=== PATIENT | female | born 1950 | race Caucasian/White ===

== ENCOUNTER 2019-04-14 11:48 | Inpatient (IN) | payer OTHER, BC ==
[2019-04-14 13:13] LABS: BASO % 0.5 % (0-2.0); EOS % 0.3 % (0-4.5); HEMATOCRIT 44.6 % (32.4-45.2); HEMOGLOBIN 14.7 GM/dL (10.7-15.3); LYMPH % 8.7 % (8-40); MCH 29.5 pg (25.7-33.7); MCHC 33.1 g/dl (32.0-36.0); MEAN CELL VOLUME 89.2 fl (80-96); MEAN PLT VOLUME 7.8 fl (7.5-11.1); MONO % 3.8 % (3.8-10.2); NEUT % 86.7 % (42.8-82.8); PLATELET COUNT 207 K/MM3 (134-434); RDW 15.5 % (11.6-15.6); WHITE BLOOD COUNT 7.2 K/mm3 (4.0-10.0)
[2019-04-14 13:29] LABS: INR 1.15 (0.83-1.09); PROTHROMBIN TIME (PATIENT) 13.6 SEC (9.7-13.0)
[2019-04-14] MEDS ORDERED: ALBUTEROL SO4 2.5/IPRATROPIUM 0.5 INH SOL 3 ML VIAL.NEB. NEB ONE (13:39)
--- NOTE | 2019-04-14 13:43 | PDOC ---
Documentation entered by Alondra Matthews SCRIBE, acting as scribe for Isha Monzon MD. Isha Monzon MD: This documentation has been prepared by the Cassie martinez Nirvannie, SCRIBE, under my direction and personally reviewed by me in its entirety. I confirm that the documentation accurately reflects all work, treatment, procedures, and medical decision making performed by me. History of Present Illness - General Chief Complaint: Shortness of Breath Stated Complaint: DIFFICULTY BREATHING Time Seen by Provider: 04/14/19 12:30 History Source: Patient Exam Limitations: No Limitations - History of Present Illness Initial Comments: 04/14/19 13:24 The patient is a 68 year old female, with a significant past medical history of COPD, DM, HTN, hypothyroidism, anxiety, breast cancer, brain cancer (s/p resection), and breast cancer, who presents to the emergency department with 1 week of productive cough with thin, white sputum and shortness of breath. As per patient, she was being evaluated at her PCP, Dr. Baxter office, at which time she received a nebulizer treatment and was referred to the ED via EMS secondary to SOB. Patient notes a recent course of Azithromycin which she was noncompliant with secondary to nausea, vomiting. She denies recent fevers, chills, headache or dizziness. She denies recent diarrhea or constipation. She denies recent dysuria, frequency, urgency or hematuria. She denies recent chest pain. Allergies: NKDA Social history: Former smoker (Quit 1 week ago). Primary Care Physician: Dr. Chase Past History - Past Medical History Allergies/Adverse Reactions: Allergies Allergy/AdvReac Type Severity Reaction Status Date / Time No Known Allergies Allergy Verified 04/14/19 12:20 Home Medications: Ambulatory Orders Amlodipine Besylate [Norvasc -] 5 mg PO DAILY 11/01/14 LORazepam [Ativan -] 1 mg PO BID PRN 11/01/14 Levothyroxine [Synthroid -] 112 mcg PO DAILY 11/01/14 Sertraline HCl [Zoloft -] 200 mg PO DAILY 11/01/14 Cancer: Yes (L breast w/ lymp w/ lung and brain mets) COPD: Yes HTN: Yes Kidney Stones: Yes Psychiatric Problems: Yes (ANXIETY.) Thyroid Disease: Yes (HYPO.) - Psycho Social/Smoking Cessation Hx Smoking History: Former smoker Have you smoked in the past 12 months: Yes Number of Cigarettes Smoked Daily: 30 If you are a former smoker, when did you quit?: last week Information on smoking cessation initiated: Yes Hx Alcohol Use: No Drug/Substance Use Hx: No Substance Use Type: None Review of Systems - Review of Systems Able to Perform ROS?: Yes Comments:: 04/14/19 13:25 GENERAL/CONSTITUTIONAL: No fever or chills. No weakness. HEAD, EYES, EARS, NOSE AND THROAT: No change in vision. No ear pain or discharge. No sore throat. CARDIOVASCULAR: +SOB. No chest pain. RESPIRATORY: +Cough. No hemoptysis. GASTROINTESTINAL: No nausea, vomiting, diarrhea or constipation. GENITOURINARY: No dysuria, frequency, or change in urination. MUSCULOSKELETAL: No joint or muscle swelling or pain. No neck or back pain. SKIN: No rash NEUROLOGIC: No headache, vertigo, loss of consciousness, or change in strength/ sensation. ENDOCRINE: No increased thirst. No abnormal weight change. HEMATOLOGIC/LYMPHATIC: No anemia, easy bleeding, or history of blood clots. ALLERGIC/IMMUNOLOGIC: No hives or skin allergy. All Other Systems: Reviewed and Negative *Physical Exam - Vital Signs Last Vital Signs Temp Pulse Resp BP Pulse Ox 98.3 F 85 22 H 144/90 95 04/14/19 12:16 04/14/19 12:16 04/14/19 12:16 04/14/19 12:16 04/14/19 12:16 Heart Score/ECG Review #1 General ECG Interpretation: Sinus Rhythm, Normal Rate (85), Normal Intervals, No acute ischemic changes ED Treatment Course - LABORATORY CBC & Chemistry Diagram: 04/14/19 12:45 04/14/19 12:45 - ADDITIONAL ORDERS Additional order review: Laboratory Results 04/14/19 12:45 PT with INR 13.60 H INR 1.15 H 04/14/19 12:45 RBC 5.00 MCV 89.2 MCHC 33.1 RDW 15.5 MPV 7.8 Neutrophils % 86.7 H D Lymphocytes % 8.7 D Monocytes % 3.8 Eosinophils % 0.3 Basophils % 0.5 Medical Decision Making - Medical Decision Making 04/14/19 13:39 68 yo F h/o HTN COPD lung ca s/p chemo radiation and braiin ca s/p resection, breast ca here with c/o sob. pt states has had sob for one week. worse with exertion. started on azithromycin one week ago by pcp. couldn't take due to n/ v. now worsening sob. pt states she quit smoking 1 week ago. no f/c cough productive white phlegm. no leg swelling. no orthopnea. no h/o pe or dvt. no mod factors. saw pcp giovany. was given one neb, mild improvement. differential: pna, effusion, ca, pe, chf copd exacerbation plan cxr labs ct chest . likely admit duonebs given in ED. ekg 04/14/19 16:37 pt with cxr with nodule near hilum, aortic knob. possible scar. will ct chest wihtout. pt mild improvement iwht nebs and steroids. will admit for copd exacerbation. ordered for levaquin 750mg ivpb. dr ruiz paged for admission for DR Bonilla. Discharge - Discharge Information Problems reviewed: Yes Clinical Impression/Diagnosis: COPD exacerbation Condition: Improved - Admission Yes - Follow up/Referral Referrals: Nena Chase MD [Primary Care Provider] - - Patient Discharge Instructions - Post Discharge Activity
[2019-04-14 13:46] LABS: ALBUMIN 3.3 g/dl (3.4-5.0); ALK PHOS 86 U/L (45-117); ANION GAP 10 MMOL/L (8-16); BILIRUBIN,TOTAL 0.6 mg/dL (0.2-1); BLOOD UREA NITROGEN 32.3 mg/dL (7-18); CALCIUM 8.6 mg/dL (8.5-10.1); CHLORIDE 101 mmol/L (98-107); CO2 23 mmol/L (21-32); CREATININE 1.2 mg/dL (0.55-1.3); GLUCOSE,RANDOM 100 mg/dL (74-106); POTASSIUM 4.3 mmol/L (3.5-5.1); SGOT/AST 57 U/L (15-37); SGPT/ALT 34 U/L (13-61); SODIUM 133 mmol/L (136-145)
[2019-04-14] MEDS ORDERED: methylPREDNISolone NA SUCC 125 MG/2 ML VIAL IVPUSH ONE (14:05)
[2019-04-14] MEDS ORDERED: methylPREDNISolone NA SUCC 125 MG/2 ML VIAL ONE (15:03)
--- NOTE | 2019-04-14 15:58 | EKG ---
Test Reason : Blood Pressure : / mmHG Vent. Rate : 085 BPM Atrial Rate : 085 BPM P-R Int : 126 ms QRS Dur : 084 ms QT Int : 360 ms P-R-T Axes : 102 096 092 degrees QTc Int : 428 ms POOR DATA QUALITY, INTERPRETATION MAY BE ADVERSELY AFFECTED SUSPECT ARM LEAD REVERSAL, INTERPRETATION ASSUMES NO REVERSAL NORMAL SINUS RHYTHM RIGHTWARD AXIS BORDERLINE ECG WHEN COMPARED WITH ECG OF 05-APR-2009 08:47, NO SIGNIFICANT CHANGE WAS FOUND Confirmed by SWETA BAUTISTA MD ([id number]) on 04/14/2019 3:58:20 PM Referred By: Confirmed By:SWETA BAUTISTA MD
[2019-04-14] MEDS ORDERED: LORazepam 1 MG TABLET PO ONE (16:39)
[2019-04-14] MEDS ORDERED: LORazepam 0.5 MG TABLET ONE (16:42)
--- NOTE | 2019-04-14 20:00 | HP ---
Admitting History and Physical - Admission History of Present Illness: 68 year old female, with a significant past medical history of COPD, DM, HTN, hypothyroidism, anxiety, breast cancer, brain cancer (s/p resection), and breast cancer, who presents to the emergency department with 1 week of productive cough with thin, white sputum and shortness of breath. - Past Medical History Cardiovascular: Yes: HTN, Hyperlipdemia Pulmonary: Yes: Cancer (mets), COPD Heme/Onc: Yes: Cancer (breast with lung and brain mets) Endocrine: Yes: Diabetes Mellitus - Smoking History Smoking history: Former smoker Have you smoked in the past 12 months: Yes Aproximately how many cigarettes per day: 30 If you are a former smoker, when did you quit?: last week - Alcohol/Substance Use Hx Alcohol Use: No Home Medications - Allergies Allergies/Adverse Reactions: Allergies Allergy/AdvReac Type Severity Reaction Status Date / Time No Known Allergies Allergy Verified 04/14/19 12:20 - Home Medications Home Medications: Ambulatory Orders Amlodipine Besylate [Norvasc -] 5 mg PO DAILY 11/01/14 LORazepam [Ativan -] 1 mg PO BID PRN 11/01/14 Levothyroxine [Synthroid -] 112 mcg PO DAILY 11/01/14 Sertraline HCl [Zoloft -] 200 mg PO DAILY 11/01/14 Review of Systems - Review of Systems Cardiovascular: denies: Chest Pain Respiratory: reports: Cough, SOB, SOB on Exertion Gastrointestinal: reports: No Symptoms Physical Examination Vital Signs: Vital Signs Temperature 98.7 F 04/14/19 18:56 Pulse Rate 86 04/14/19 18:56 Respiratory Rate 20 04/14/19 18:56 Blood Pressure 106/70 04/14/19 18:56 O2 Sat by Pulse Oximetry (%) 95 04/14/19 18:20 Cardiovascular: Yes: S1, S2 Respiratory: Yes: Diminished, On Nasal O2, Rhonchi Gastrointestinal: Yes: Normal Bowel Sounds, Soft Edema: No Neurological: Yes: Alert, Oriented Labs: CBC, BMP 04/14/19 12:45 04/14/19 12:45 Problem List - Problems (1) COPD exacerbation Assessment/Plan: IV STEROIDS NEBS IV ABX PULM CONSULT Code(s): J44.1 - CHRONIC OBSTRUCTIVE PULMONARY DISEASE W (ACUTE) EXACERBATION (2) Breast cancer Assessment/Plan: ONCOLOGY CONSULT Code(s): C50.919 - MALIGNANT NEOPLASM OF UNSP SITE OF UNSPECIFIED FEMALE BREAST (3) Breast cancer metastasized to brain Code(s): C50.919 - MALIGNANT NEOPLASM OF UNSP SITE OF UNSPECIFIED FEMALE BREAST ; C79.31 - SECONDARY MALIGNANT NEOPLASM OF BRAIN (4) Breast cancer metastasized to lung Code(s): C50.919 - MALIGNANT NEOPLASM OF UNSP SITE OF UNSPECIFIED FEMALE BREAST ; C78.00 - SECONDARY MALIGNANT NEOPLASM OF UNSPECIFIED LUNG (5) Diabetes Code(s): E11.9 - TYPE 2 DIABETES MELLITUS WITHOUT COMPLICATIONS
[2019-04-14] MEDS: ALBUTEROL SO4 2.5/IPRATROPIUM 0.5 INH SOL 3 ML VIAL.NEB. NEB SCH (20:52)
[2019-04-14] MEDS: HEPARIN NA (PORCINE) 5,000 UNITS/ML 1ML VIAL SQ SCH (22:03)
[2019-04-14] MEDS: INSULIN SLIDING SCALE (NOVOLOG) 1 VIAL SQ SCH (22:03)
[2019-04-14] MEDS: methylPREDNISolone NA SUCC 40 MG/1 ML VIAL IVPUSH SCH (22:03)
[2019-04-15 00:45] VITALS: BMI 25.7
[2019-04-15] MEDS: methylPREDNISolone NA SUCC 40 MG/1 ML VIAL IVPUSH SCH ×4 (02:00→21:24)
[2019-04-15] MEDS: LEVOTHYROXINE NA 112 MCG TABLET (FP) PO SCH (06:35)
[2019-04-15] MEDS: INSULIN SLIDING SCALE (NOVOLOG) 1 VIAL SQ SCH ×4 (06:35→21:25)
[2019-04-15 07:26] LABS: BASO % 0.3 % (0-2.0); HEMATOCRIT 40.5 % (32.4-45.2); HEMOGLOBIN 13.5 GM/dL (10.7-15.3); LYMPH % 14.2 % (8-40); MCH 29.6 pg (25.7-33.7); MCHC 33.4 g/dl (32.0-36.0); MEAN CELL VOLUME 88.5 fl (80-96); MEAN PLT VOLUME 8.2 fl (7.5-11.1); MONO % 4.5 % (3.8-10.2); PLATELET COUNT 203 K/MM3 (134-434); RBC 4.58 M/mm3 (3.60-5.2); RDW 15.8 % (11.6-15.6); WHITE BLOOD COUNT 5.4 K/mm3 (4.0-10.0)
--- NOTE | 2019-04-15 08:01 | PN ---
Progress Note, Physician - Current Medication List Current Medications: Active Medications Albuterol/Ipratropium (Duoneb -) 1 amp NEB RQID [facility] Last Admin: 04/14/19 20:52 Dose: 1 amp Amlodipine Besylate (Norvasc -) 5 mg PO DAILY [facility] Heparin Sodium (Porcine) (Heparin -) 5,000 unit SQ BID [facility] Last Admin: 04/14/19 22:03 Dose: 5,000 unit Insulin Aspart (Novolog Vial Sliding Scale -) 1 vial SQ ACHS [facility]; Protocol Last Admin: 04/15/19 06:35 Dose: Not Given Levothyroxine Sodium (Synthroid -) 112 mcg PO ACBK [facility] Last Admin: 04/15/19 06:35 Dose: 112 mcg Lorazepam (Ativan -) 1 mg PO BID PRN PRN Reason: ANXIETY Methylprednisolone Sodium Succinate (Solu-Medrol -) 40 mg IVPUSH Q6H-IV [facility] Last Admin: 04/15/19 02:00 Dose: 40 mg Sertraline HCl (Zoloft -) 200 mg PO HS [facility] - Objective Vital Signs: Vital Signs Temperature 97.5 F L 04/15/19 06:51 Pulse Rate 73 04/15/19 06:51 Respiratory Rate 20 04/15/19 06:51 Blood Pressure 122/66 04/15/19 06:51 O2 Sat by Pulse Oximetry (%) 99 04/14/19 20:15 Cardiovascular: Yes: Regular Rate and Rhythm Respiratory: Yes: On Nasal O2, Rhonchi, Wheezes Gastrointestinal: Yes: Normal Bowel Sounds, Soft Labs: CBC, BMP 04/15/19 06:05 INR, PTT INR 1.15 (0.83-1.09) H 04/14/19 12:45 Problem List - Problems (1) COPD exacerbation Assessment/Plan: IV STEROIDS NEBS IV ABX PULM CONSULT Code(s): J44.1 - CHRONIC OBSTRUCTIVE PULMONARY DISEASE W (ACUTE) EXACERBATION (2) Breast cancer Assessment/Plan: ONCOLOGY CONSULT Code(s): C50.919 - MALIGNANT NEOPLASM OF UNSP SITE OF UNSPECIFIED FEMALE BREAST (3) Breast cancer metastasized to brain Assessment/Plan: obtain old records Code(s): C50.919 - MALIGNANT NEOPLASM OF UNSP SITE OF UNSPECIFIED FEMALE BREAST ; C79.31 - SECONDARY MALIGNANT NEOPLASM OF BRAIN (4) Breast cancer metastasized to lung Assessment/Plan: Oncology consult CT SCAN NOTED Code(s): C50.919 - MALIGNANT NEOPLASM OF UNSP SITE OF UNSPECIFIED FEMALE BREAST ; C78.00 - SECONDARY MALIGNANT NEOPLASM OF UNSPECIFIED LUNG (5) Diabetes Code(s): E11.9 - TYPE 2 DIABETES MELLITUS WITHOUT COMPLICATIONS
[2019-04-15 08:03] LABS: ALBUMIN 2.9 g/dl (3.4-5.0); BILIRUBIN,TOTAL 0.5 mg/dL (0.2-1); BLOOD UREA NITROGEN 43.2 mg/dL (7-18); CALCIUM 8.8 mg/dL (8.5-10.1); CREATININE 1.2 mg/dL (0.55-1.3); POTASSIUM 5.5 mmol/L (3.5-5.1); TOT PROT 7.5 g/dl (6.4-8.2)
[2019-04-15] MEDS: ALBUTEROL SO4 2.5/IPRATROPIUM 0.5 INH SOL 3 ML VIAL.NEB. NEB SCH ×4 (08:19→21:19)
[2019-04-15] MEDS: LORazepam 0.5 MG TABLET PO PRN ×2 (09:26→21:24)
[2019-04-15] MEDS: amLODIPine BESYLATE 5 MG TABLET (FP) PO SCH (09:26)
[2019-04-15] MEDS: HEPARIN NA (PORCINE) 5,000 UNITS/ML 1ML VIAL SQ SCH ×2 (09:27→21:24)
[2019-04-15] MEDS ORDERED: SERTRALINE HCL 50 MG TABLET (FP) PO SCH (10:00)
--- NOTE | 2019-04-15 11:03 | CON.PULM ---
Consult Consult Specialty:: PULM/CCM Referred by:: CHIRAG Reason for Consultation:: SOB - History of Present Illness Chief Complaint: SOB History of Present Illness: 68 F, active smoker up until about 10 days ago, COPD, not home O2 dependent, DM , HTN, hypothyroidism, anxiety, breast cancer, brain cancer (s/p resection), and reports that she had primary lung cancer. Apparently has received chemotherapy and radiation therapy to the left lung. She follows with an oncologist at [facility] every [address] and is due to her repeat scans. No travel history or sick contacts. No hemoptysis or night sweats. CT Chest: volume loss in the STEVO with shift of the mediastinum / fibrotic changes and scarring in the left hilum / cannot R/O mass lesion (patient reports that she knows about scar tissue on her chest CT unsure of the details) . - History Source History Provided By: Patient Limitations to Obtaining History: No Limitations - Past Medical History Cardio/Vascular: Yes: HTN, Hyperlipdemia Pulmonary: Yes: Bronchitis, Cancer (mets), COPD, Pneumonia. No: Asthma, O2 Dependent, Previously Intubated, Pulmonary Embolus, Pulmonary Fibrosis, Sleep Apnea Endocrine: Yes: Diabetes Mellitus - Alcohol/Substance Use Hx Alcohol Use: No - Smoking History Smoking history: Former smoker Have you smoked in the past 12 months: Yes Aproximately how many cigarettes per day: 30 If you are a former smoker, when did you quit?: last week Home Medications - Allergies Allergies/Adverse Reactions: Allergies Allergy/AdvReac Type Severity Reaction Status Date / Time No Known Allergies Allergy Verified 04/14/19 12:20 - Home Medications Home Medications: Ambulatory Orders Amlodipine Besylate [Norvasc -] 5 mg PO DAILY 11/01/14 LORazepam [Ativan -] 1 mg PO Q6H PRN 11/01/14 Levothyroxine [Synthroid -] 112 mcg PO DAILY 11/01/14 Sertraline HCl [Zoloft -] 200 mg PO HS 11/01/14 Review of Systems - Review of Systems Constitutional: reports: Lethargy, Malaise, Weakness. denies: Chills, Fever, Night Sweats, Unintentional Wgt. Loss Eyes: reports: No Symptoms HENT: reports: No Symptoms Neck: reports: No Symptoms Cardiovascular: reports: Shortness of Breath. denies: Chest Pain, Edema, Palpitations Respiratory: reports: Cough, SOB, SOB on Exertion, Wheezing. denies: Hemoptysis , Orthopnea, PND, Snoring Gastrointestinal: reports: No Symptoms Genitourinary: reports: No Symptoms Breasts: reports: No Symptoms Reported Musculoskeletal: reports: No Symptoms Integumentary: reports: No Symptoms Neurological: reports: No Symptoms Endocrine: reports: No Symptoms Hematology/Lymphatic: reports: No Symptoms Psychiatric: reports: No Symptoms Physical Exam Vital Sings: Vital Signs Temperature 97.2 F L 04/15/19 09:32 Pulse Rate 76 04/15/19 09:32 Respiratory Rate 22 H 04/15/19 09:32 Blood Pressure 129/67 04/15/19 09:32 O2 Sat by Pulse Oximetry (%) 98 04/15/19 09:00 Constitutional: Yes: Mild Distress Eyes: Yes: Conjunctiva Clear, EOM Intact HENT: Yes: Other (scar) Neck: Yes: Supple, Trachea Midline Cardiovascular: Yes: Regular Rate and Rhythm Respiratory: Yes: Cough, Diminished, On Nasal O2, Rhonchi, SOB, SOB on Exertion , Tachypnea, Wheezes. No: Accessory Muscle Use, Rales, Stridor ...Inspection: Yes: WNL ...Clubbing: No Gastrointestinal: Yes: Normal Bowel Sounds, Soft Renal/: Yes: WNL Musculoskeletal: Yes: WNL Extremities: Yes: WNL Edema: No Peripheral Pulses WNL: Yes Integumentary: Yes: WNL Neurological: Yes: WNL, Alert, Oriented ...Motor Strength: WNL Psychiatric: Yes: WNL, Alert, Oriented Labs: CBC, BMP 04/15/19 06:05 04/15/19 06:05 Imaging - Results Chest X-ray: Report Reviewed, Image Reviewed Cat Scan: Report Reviewed, Image Reviewed Problem List - Problems (1) Smoker Code(s): F17.200 - NICOTINE DEPENDENCE, UNSPECIFIED, UNCOMPLICATED (2) Breast cancer Code(s): C50.919 - MALIGNANT NEOPLASM OF UNSP SITE OF UNSPECIFIED FEMALE BREAST (3) Breast cancer metastasized to brain Code(s): C50.919 - MALIGNANT NEOPLASM OF UNSP SITE OF UNSPECIFIED FEMALE BREAST ; C79.31 - SECONDARY MALIGNANT NEOPLASM OF BRAIN (4) Breast cancer metastasized to lung Code(s): C50.919 - MALIGNANT NEOPLASM OF UNSP SITE OF UNSPECIFIED FEMALE BREAST ; C78.00 - SECONDARY MALIGNANT NEOPLASM OF UNSPECIFIED LUNG (5) COPD exacerbation Code(s): J44.1 - CHRONIC OBSTRUCTIVE PULMONARY DISEASE W (ACUTE) EXACERBATION (6) Diabetes Code(s): E11.9 - TYPE 2 DIABETES MELLITUS WITHOUT COMPLICATIONS (7) Low back pain Code(s): M54.5 - LOW BACK PAIN Assessment/Plan Medrol BD TX standing and PRN Would monitor off ABX low suspicion for bacterial infection O2 as needed to maintain saturation VTE prophylaxis No smoking counseled Need to compare current CT to the ones from [facility] where the patient follows Will follow Thank you. Dr Ramirez
--- NOTE | 2019-04-15 12:56 | CONSULT ---
Consultation: REQUESTING PROVIDER:Dr.Annabi Dillon CONSULT REQUEST: We have been asked to medically evaluate this patient for ( history of breast cancer ). HISTORY OF PRESENT ILLNESS: 68 F, active smoker up until about 10 days ago, COPD, not home O2 dependent, DM , HTN, hypothyroidism, anxiety, breast cancer, brain cancer (s/p resection), and reports that she had primary lung cancer. Apparently has received chemotherapy and radiation therapy to the left lung. She follows with an oncologist at [facility] every [address] surveillance and is due to her repeat scans. No travel history or sick contacts. No hemoptysis or night sweats. CT Chest: volume loss in the STEVO with shift of the mediastinum / fibrotic changes and scarring in the left hilum / cannot R/O mass lesion (patient reports that she knows about scar tissue on her chest CT unsure of the details) . REVIEW OF SYSTEMS: CONSTITUTIONAL: Absent: fever, chills, diaphoresis, generalized weakness, malaise, loss of appetite, weight change HEENT: Absent: rhinorrhea, nasal congestion, throat pain, throat swelling, difficulty swallowing, mouth swelling, ear pain, eye pain, visual changes CARDIOVASCULAR: Absent: chest pain, syncope, palpitations, irregular heart rate, lightheadedness , peripheral edema RESPIRATORY: Absent: cough, shortness of breath, dyspnea with exertion, orthopnea, wheezing, stridor, hemoptysis GASTROINTESTINAL: Absent: abdominal pain, abdominal distension, nausea, vomiting, diarrhea, constipation, melena, hematochezia GENITOURINARY: Absent: dysuria, frequency, urgency, hesitancy, hematuria, flank pain, genital pain MUSCULOSKELETAL: Absent: myalgia, arthralgia, joint swelling, back pain, neck pain SKIN: Absent: rash, itching, pallor HEMATOLOGIC/IMMUNOLOGIC: Absent: easy bleeding, easy bruising, lymphadenopathy, frequent infections ENDOCRINE: Absent: unexplained weight gain, unexplained weight loss, heat intolerance, cold intolerance NEUROLOGIC: Absent: headache, focal weakness or paresthesias, dizziness, unsteady gait, seizure, mental status changes, bladder or bowel incontinence PSYCHIATRIC: Absent: anxiety, depression, suicidal or homicidal ideation, hallucinations. PHYSICAL EXAMINATION Vital Signs - 24 hr 04/14/19 04/14/19 04/14/19 18:20 18:56 20:15 Temperature 97.5 F L 98.7 F 97.7 F Pulse Rate 86 71 Pulse Rate [ 89 Radial] Respiratory 20 20 20 Rate Blood Pressure 106/70 141/58 L Blood Pressure 114/64 [Right Arm] O2 Sat by Pulse 95 99 Oximetry (%) 04/15/19 04/15/19 04/15/19 06:51 09:00 09:32 Temperature 97.5 F L 97.2 F L Pulse Rate 73 76 Pulse Rate [ Radial] Respiratory 20 22 H Rate Blood Pressure 122/66 129/67 Blood Pressure [Right Arm] O2 Sat by Pulse 98 Oximetry (%) GENERAL: Awake, alert, and fully oriented, in no acute distress.om nasal cannula HEAD: Normal with no signs of trauma. EYES: Pupils equal, round and reactive to light, extraocular movements intact, EARS, NOSE, THROAT: Moist mucous membranes.no oral thrush or mucositis NECK: supple without lymphadenopathy LUNGS: decrease breath sounds all over , anterior expiratoty wheezing HEART: Regular rate and rhythm, normal S1 and S2 without murmur, rub or gallop. ABDOMEN: Soft, nontender, not distended, normoactive bowel sounds, longtudinal surgical car no nodules enlargement appreciated axillary , submandibular or inguinal LOWER EXTREMITIES: 2+ pulses, warm, well-perfused. No calf tenderness. No peripheral edema. NEUROLOGICAL: Cranial nerves II-XII intact. Normal speech. PSYCHIATRIC: Cooperative. Good eye contact. SKIN: Warm, dry, normal turgor, Laboratory Results - last 24 hr 04/14/19 04/14/19 04/14/19 12:45 12:45 12:45 WBC 7.2 RBC 5.00 Hgb 14.7 Hct 44.6 MCV 89.2 MCH 29.5 MCHC 33.1 RDW 15.5 Plt Count 207 MPV 7.8 Absolute Neuts (auto) 6.2 Neutrophils % 86.7 H D Lymphocytes % 8.7 D Monocytes % 3.8 Eosinophils % 0.3 Basophils % 0.5 Nucleated RBC % 0 PT with INR 13.60 H INR 1.15 H Sodium 133 L Potassium 4.3 Chloride 101 Carbon Dioxide 23 Anion Gap 10 BUN 32.3 H Creatinine 1.2 Est GFR (CKD-EPI)AfAm 53.78 Est GFR (CKD-EPI)NonAf 46.40 POC Glucometer Random Glucose 100 Calcium 8.6 Total Bilirubin 0.6 AST 57 H ALT 34 Alkaline Phosphatase 86 Creatine Kinase 482 H Creatine Kinase Index 1.1 CK-MB (CK-2) 5.7 H Troponin I < 0.02 B-Natriuretic Peptide 203.0 H Total Protein 8.0 Albumin 3.3 L TSH 04/14/19 04/15/19 04/15/19 22:01 06:05 06:05 WBC 5.4 RBC 4.58 Hgb 13.5 Hct 40.5 MCV 88.5 MCH 29.6 MCHC 33.4 RDW 15.8 H Plt Count 203 MPV 8.2 Absolute Neuts (auto) 4.4 Neutrophils % 81.0 Lymphocytes % 14.2 D Monocytes % 4.5 Eosinophils % 0.0 D Basophils % 0.3 Nucleated RBC % 0 PT with INR INR Sodium 135 L Potassium 5.5 H Chloride 104 Carbon Dioxide 24 Anion Gap 7 L BUN 43.2 H Creatinine 1.2 Est GFR (CKD-EPI)AfAm 53.78 Est GFR (CKD-EPI)NonAf 46.40 POC Glucometer 175 Random Glucose 141 H Calcium 8.8 Total Bilirubin 0.5 AST 58 H ALT 35 Alkaline Phosphatase 82 Creatine Kinase Creatine Kinase Index CK-MB (CK-2) Troponin I B-Natriuretic Peptide Total Protein 7.5 Albumin 2.9 L TSH 0.63 04/15/19 06:33 WBC RBC Hgb Hct MCV MCH MCHC RDW Plt Count MPV Absolute Neuts (auto) Neutrophils % Lymphocytes % Monocytes % Eosinophils % Basophils % Nucleated RBC % PT with INR INR Sodium Potassium Chloride Carbon Dioxide Anion Gap BUN Creatinine Est GFR (CKD-EPI)AfAm Est GFR (CKD-EPI)NonAf POC Glucometer 141 Random Glucose Calcium Total Bilirubin AST ALT Alkaline Phosphatase Creatine Kinase Creatine Kinase Index CK-MB (CK-2) Troponin I B-Natriuretic Peptide Total Protein Albumin TSH Active Medications Generic Name Dose Route Start Last Admin Trade Name Freq PRN Reason Stop Dose Admin Albuterol Sulfate 1 amp 04/15/19 11:05 Ventolin 0.083% Nebulizer Soln - NEB Q4H PRN SHORT OF BREATH/WHEEZING Albuterol/Ipratropium 1 amp 04/14/19 20:00 04/15/19 11:55 Duoneb - NEB 1 amp RQID [facility] Administration Amlodipine Besylate 5 mg 04/15/19 10:00 04/15/19 09:26 Norvasc - PO 5 mg DAILY [facility] Administration Heparin Sodium (Porcine) 5,000 unit 04/14/19 22:00 04/15/19 09:27 Heparin - SQ 5,000 unit BID [facility] Administration Insulin Aspart 1 vial 04/14/19 22:00 04/15/19 12:10 Novolog Vial Sliding Scale - SQ Not Given ACHS [facility] Protocol Levothyroxine Sodium 112 mcg 04/15/19 07:00 04/15/19 06:35 Synthroid - PO 112 mcg ACBK [facility] Administration Lorazepam 1 mg 04/14/19 19:28 04/15/19 09:26 Ativan - PO 1 mg BID PRN Administration ANXIETY Methylprednisolone Sodium Succinate 40 mg 04/14/19 21:00 04/15/19 09:27 Solu-Medrol - IVPUSH 40 mg Q6H-IV [facility] Administration Sertraline HCl 200 mg 04/15/19 22:00 Zoloft - PO HS [facility] CBC, BMP 04/15/19 06:05 04/15/19 06:05 ASSESSMENT/PLAN: # breast cancer with mets to lungs and brain her oncologist at [facility] , refuse to be seen by oncologist here , last time seen by her oncologist 2 days ago , has radiation and chemotherapy done 4 yers ago follow by brain mets removal can follow up with her oncologist as out pt signed off on the case call us back if needed # sob 2/2 COPD per pulmonary # hyperkalemia per primary team Dispo: We will continue to follow the patient. Thank you for this consultative opportunity. Visit type - Emergency Visit Emergency Visit: Yes ED Registration Date: 04/14/19 Care time: The patient presented to the Emergency Department on the above date and was hospitalized for further evaluation of their emergent condition. - New Patient This patient is new to me today: Yes Date on this admission: 04/14/19 - Critical Care Critical Care patient: No ATTENDING PHYSICIAN STATEMENT I saw and evaluated the patient. I reviewed the resident's note and discussed the case with the resident. I agree with the resident's findings and plan as documented. SUBJECTIVE: OBJECTIVE: ASSESSMENT AND PLAN:
--- NOTE | 2019-04-15 20:06 | PN ---
Teaching Attending Note Name of Resident: Sukhdeep Ghotra ATTENDING PHYSICIAN STATEMENT I saw and evaluated the patient. I reviewed the resident's note and discussed the case with the resident. I agree with the resident's findings and plan as documented. SUBJECTIVE: Doing well. Breathing has now improved OBJECTIVE: Last Vital Signs Temp Pulse Resp BP Pulse Ox 98.3 F 68 209 H 127/55 L 98 04/15/19 18:00 04/15/19 18:00 04/15/19 18:00 04/15/19 18:00 04/15/19 09:00 HEENT: MMM CVS: S1, S2, Claudio Lungs: Ocassional wheezing, very good air entry Abdomen: Soft, NT, ND Legs: No edema Neuro: Moves all extremities ASSESSMENT AND PLAN: 68 y/o lady active smoker up until about 10 days ago (mentioned mainly smokes marihuana) COPD, not home O2 dependent, DM, HTN, hypothyroidism, anxiety, breast cancer, "brain cancer" (s/p resection ? metastasis), and reports that she had primary lung cancer. Apparently has received chemotherapy and radiation therapy to the left lung. She follows with an oncologist at [facility] every [address] ([address] Ngo) for CT surveillance and is due to her repeat scans. Recommend: 1) Prior breast, lung and s/p brain surgery for cancer resection. Follows actively with Dr. Ngo at [facility]. 2) COPD Exacerbation. Steroids. Nebulizations per Primary team. Recommended Pulmonary outpatient follow-up 3) Thank you for this consultation
[2019-04-15] MEDS ORDERED: ACETAMINOPHEN 325 MG TABLET (FP) PO ONE (20:33)
[2019-04-15] MEDS: SERTRALINE HCL 50 MG TABLET (FP) PO SCH (21:24)
[2019-04-16] MEDS: methylPREDNISolone NA SUCC 40 MG/1 ML VIAL IVPUSH SCH ×4 (02:14→21:33)
[2019-04-16] MEDS: LEVOTHYROXINE NA 112 MCG TABLET (FP) PO SCH (06:01)
[2019-04-16] MEDS: INSULIN SLIDING SCALE (NOVOLOG) 1 VIAL SQ SCH ×4 (06:01→21:33)
[2019-04-16] MEDS: ALBUTEROL SO4 2.5/IPRATROPIUM 0.5 INH SOL 3 ML VIAL.NEB. NEB SCH ×4 (07:35→20:30)
[2019-04-16] MEDS: HEPARIN NA (PORCINE) 5,000 UNITS/ML 1ML VIAL SQ SCH ×2 (09:02→21:32)
[2019-04-16] MEDS: amLODIPine BESYLATE 5 MG TABLET (FP) PO SCH (09:03)
--- NOTE | 2019-04-16 09:39 | PN ---
Progress Note, Physician - Current Medication List Current Medications: Active Medications Albuterol Sulfate (Ventolin 0.083% Nebulizer Soln -) 1 amp NEB Q4H PRN PRN Reason: SHORT OF BREATH/WHEEZING Albuterol/Ipratropium (Duoneb -) 1 amp NEB RQID [facility] Last Admin: 04/16/19 07:35 Dose: 1 amp Amlodipine Besylate (Norvasc -) 5 mg PO DAILY [facility] Last Admin: 04/16/19 09:03 Dose: 5 mg Heparin Sodium (Porcine) (Heparin -) 5,000 unit SQ BID [facility] Last Admin: 04/16/19 09:02 Dose: 5,000 unit Insulin Aspart (Novolog Vial Sliding Scale -) 1 vial SQ ACHS [facility]; Protocol Last Admin: 04/16/19 06:01 Dose: Not Given Levothyroxine Sodium (Synthroid -) 112 mcg PO ACBK [facility] Last Admin: 04/16/19 06:01 Dose: 112 mcg Lorazepam (Ativan -) 1 mg PO BID PRN PRN Reason: ANXIETY Last Admin: 04/15/19 21:24 Dose: 1 mg Methylprednisolone Sodium Succinate (Solu-Medrol -) 40 mg IVPUSH Q6H-IV [facility] Last Admin: 04/16/19 09:02 Dose: 40 mg Sertraline HCl (Zoloft -) 200 mg PO HS [facility] Last Admin: 04/15/19 21:24 Dose: 200 mg - Objective Vital Signs: Vital Signs Temperature 98.2 F 04/16/19 09:00 Pulse Rate 73 04/16/19 09:00 Respiratory Rate 19 04/16/19 09:00 Blood Pressure 122/62 04/16/19 09:00 O2 Sat by Pulse Oximetry (%) 99 04/15/19 21:00 Cardiovascular: Yes: S1, S2 Respiratory: Yes: Diminished, Rhonchi Gastrointestinal: Yes: Normal Bowel Sounds, Soft Labs: CBC, BMP 04/15/19 06:05 04/15/19 06:05 INR, PTT INR 1.15 (0.83-1.09) H 04/14/19 12:45 Problem List - Problems (1) COPD exacerbation Assessment/Plan: IV STEROIDS NEBS PULM CONSULT add mucomyst Code(s): J44.1 - CHRONIC OBSTRUCTIVE PULMONARY DISEASE W (ACUTE) EXACERBATION (2) Breast cancer Assessment/Plan: ONCOLOGY CONSULT Code(s): C50.919 - MALIGNANT NEOPLASM OF UNSP SITE OF UNSPECIFIED FEMALE BREAST (3) Breast cancer metastasized to brain Assessment/Plan: obtain old records Code(s): C50.919 - MALIGNANT NEOPLASM OF UNSP SITE OF UNSPECIFIED FEMALE BREAST ; C79.31 - SECONDARY MALIGNANT NEOPLASM OF BRAIN (4) Breast cancer metastasized to lung Assessment/Plan: Oncology consult noted CT SCAN NOTED Code(s): C50.919 - MALIGNANT NEOPLASM OF UNSP SITE OF UNSPECIFIED FEMALE BREAST ; C78.00 - SECONDARY MALIGNANT NEOPLASM OF UNSPECIFIED LUNG (5) Diabetes Code(s): E11.9 - TYPE 2 DIABETES MELLITUS WITHOUT COMPLICATIONS
[2019-04-16] MEDS: ACETYLCYSTEINE 20% 200MG/ML 4 ML VIAL *FOR ORAL / INH USE ONLY NEB SCH ×3 (11:45→20:30)
[2019-04-16] MEDS: ALBUTEROL SO4 0.083% IH SOL 2.5 MG/3 ML VIAL.NEB. NEB PRN ×3 (11:45→20:30)
--- NOTE | 2019-04-16 11:45 | PN ---
Progress Note (short form) - Note Progress Note: Breathing feels a little better today. Less SOB and cough. No acute events overnight. Intake & Output 04/13/19 04/14/19 04/15/19 04/16/19 23:59 23:59 23:59 23:59 Intake Total 120 1100 Balance 120 1100 Weight 150 lb 0.8 oz Last Vital Signs Temp Pulse Resp BP Pulse Ox 98.2 F 73 19 122/62 99 04/16/19 09:00 04/16/19 09:00 04/16/19 09:00 04/16/19 09:00 04/15/19 21:00 Active Medications Acetylcysteine (Mucomyst 20 Oral / Inh Use Only*) 400 mg NEB RQID [facility] Albuterol Sulfate (Ventolin 0.083% Nebulizer Soln -) 1 amp NEB Q4H PRN PRN Reason: SHORT OF BREATH/WHEEZING Albuterol/Ipratropium (Duoneb -) 1 amp NEB RQID [facility] Last Admin: 04/16/19 07:35 Dose: 1 amp Amlodipine Besylate (Norvasc -) 5 mg PO DAILY [facility] Last Admin: 04/16/19 09:03 Dose: 5 mg Heparin Sodium (Porcine) (Heparin -) 5,000 unit SQ BID [facility] Last Admin: 04/16/19 09:02 Dose: 5,000 unit Insulin Aspart (Novolog Vial Sliding Scale -) 1 vial SQ [facility]; Protocol Last Admin: 04/16/19 06:01 Dose: Not Given Levothyroxine Sodium (Synthroid -) 112 mcg PO ACBK [facility] Last Admin: 04/16/19 06:01 Dose: 112 mcg Lorazepam (Ativan -) 1 mg PO BID PRN PRN Reason: ANXIETY Last Admin: 04/15/19 21:24 Dose: 1 mg Methylprednisolone Sodium Succinate (Solu-Medrol -) 40 mg IVPUSH BID [facility] Last Admin: 04/16/19 11:22 Dose: Not Given Sertraline HCl (Zoloft -) 200 mg PO HS [facility] Last Admin: 04/15/19 21:24 Dose: 200 mg Constitutional: Yes: NAD, Anxious Eyes: Yes: Conjunctiva Clear, EOM Intact HENT: Yes: Other (scar) Neck: Yes: Supple, Trachea Midline Cardiovascular: Yes: Regular Rate and Rhythm Respiratory: Yes: Cough, Diminished, On Nasal O2, Rhonchi, Wheezes. No: Accessory Muscle Use, Rales, Stridor ...Inspection: Yes: WNL ...Clubbing: No Gastrointestinal: Yes: Normal Bowel Sounds, Soft Renal/: Yes: WNL Musculoskeletal: Yes: WNL Extremities: Yes: WNL Edema: No Peripheral Pulses WNL: Yes Integumentary: Yes: WNL Neurological: Yes: WNL, Alert, Oriented ...Motor Strength: WNL Psychiatric: Yes: WNL, Alert, Oriented Labs: Laboratory Results - last 24 hr 04/15/19 04/15/19 04/15/19 06:05 12:08 15:38 POC Glucometer 141 144 Carcinoembryonic Ag 4.3 04/15/19 04/16/19 21:22 05:59 POC Glucometer 124 131 Carcinoembryonic Ag Problem List - Problems (1) Smoker Code(s): F17.200 - NICOTINE DEPENDENCE, UNSPECIFIED, UNCOMPLICATED (2) Breast cancer Code(s): C50.919 - MALIGNANT NEOPLASM OF UNSP SITE OF UNSPECIFIED FEMALE BREAST (3) Breast cancer metastasized to brain Code(s): C50.919 - MALIGNANT NEOPLASM OF UNSP SITE OF UNSPECIFIED FEMALE BREAST ; C79.31 - SECONDARY MALIGNANT NEOPLASM OF BRAIN (4) Breast cancer metastasized to lung Code(s): C50.919 - MALIGNANT NEOPLASM OF UNSP SITE OF UNSPECIFIED FEMALE BREAST ; C78.00 - SECONDARY MALIGNANT NEOPLASM OF UNSPECIFIED LUNG (5) COPD exacerbation Code(s): J44.1 - CHRONIC OBSTRUCTIVE PULMONARY DISEASE W (ACUTE) EXACERBATION (6) Diabetes Code(s): E11.9 - TYPE 2 DIABETES MELLITUS WITHOUT COMPLICATIONS (7) Low back pain Code(s): M54.5 - LOW BACK PAIN Assessment/Plan Medrol BD TX standing and PRN Would monitor off ABX low suspicion for bacterial infection O2 as needed to maintain saturation VTE prophylaxis No smoking counseled Need to compare current CT to the ones from [facility] where the patient follows Dr Ramirez Problem List - Problems (1) Smoker Code(s): F17.200 - NICOTINE DEPENDENCE, UNSPECIFIED, UNCOMPLICATED (2) Breast cancer Code(s): C50.919 - MALIGNANT NEOPLASM OF UNSP SITE OF UNSPECIFIED FEMALE BREAST (3) Breast cancer metastasized to brain Code(s): C50.919 - MALIGNANT NEOPLASM OF UNSP SITE OF UNSPECIFIED FEMALE BREAST ; C79.31 - SECONDARY MALIGNANT NEOPLASM OF BRAIN (4) Breast cancer metastasized to lung Code(s): C50.919 - MALIGNANT NEOPLASM OF UNSP SITE OF UNSPECIFIED FEMALE BREAST ; C78.00 - SECONDARY MALIGNANT NEOPLASM OF UNSPECIFIED LUNG (5) COPD exacerbation Code(s): J44.1 - CHRONIC OBSTRUCTIVE PULMONARY DISEASE W (ACUTE) EXACERBATION (6) Diabetes Code(s): E11.9 - TYPE 2 DIABETES MELLITUS WITHOUT COMPLICATIONS (7) Low back pain Code(s): M54.5 - LOW BACK PAIN
--- NOTE | 2019-04-16 13:26 | ECHO ---
Name: NICK, DONTRELL Exam:Adult Echocardiogram Study Date: 04/16/2019 10:39 AM Age: 68 yrs Height: 64 in Weight: 150 lb BSA: 1.7 m2 MMode/2D Measurements & Calculations IVSd: 0.90 cm Ao root diam: 2.0 cm LVIDd: 2.7 cm LA dimension: 2.9 cm LVIDs: 2.2 cm ACS: 1.3 cm LVPWd: 0.74 cm EDV(Teich): 26.7 ml LVOT diam: 1.8 cm ESV(Teich): 15.3 ml RV S Seamus: 13.6 cm/sec Doppler Measurements & Calculations MV E max seamus: 101.2 cm/sec Ao V2 max: 136.7 cm/sec MV A max seamus: 82.4 cm/sec Ao max P.5 mmHg MV E/A: 1.2 MV dec time: 0.22 sec VALERIO(V,D): 1.2 cm2 LV V1 max P.8 mmHg SV(LVOT): 40.0 ml LV V1 mean P.1 mmHg LV V1 max: 66.6 cm/sec LV V1 mean: 51.6 cm/sec LV V1 VTI: 15.8 cm TR max seamus: 299.3 cm/sec PA V2 max: 88.8 cm/sec TR max P.1 mmHg PA max P.2 mmHg Med Peak E' Seamus: 6.8 cm/sec Med E/e': 14.8 Lat Peak E' Seamus: 8.6 cm/sec Lat E/e': 11.7 Procedure The study was technically difficult with many images being suboptimal in quality. Left Ventricle Left ventricular systolic function is grossly normal. Regional wall motion abnormalities cannot be ex cluded due to limited visualization. Right Ventricle The right ventricle is grossly normal size. The right ventricular systolic function is grossly normal . Atria Normal left and right atrial size and function. Mitral Valve The mitral valve is grossly normal. There is no mitral valve stenosis. Tricuspid Valve The tricuspid valve is normal in structure and function. There is mild tricuspid regurgitation. Right ventricular systolic pressure is elevated at 40-50mmHg. Aortic Valve The aortic valve opens well. Pulmonic Valve The pulmonic valve is not well seen, but is grossly normal. There is no pulmonic valvular stenosis. T here is no pulmonic valvular regurgitation. Great Vessels Mild atherosclerotic plaque(s) in the ascending aorta. Interpretation Summary The study was technically difficult with many images being suboptimal in quality. Regional wall motion abnormalities cannot be excluded due to limited visualization. Left ventricular systolic function is grossly normal. There is mild tricuspid regurgitation. Right ventricular systolic pressure is elevated at 40-50mmHg. Mild atherosclerotic plaque(s) in the ascending aorta. MD Villarreal *Marialuisa 04/16/2019 01:13 PM
--- NOTE | 2019-04-16 15:36 | CON.CARD ---
Consult Consult Specialty:: Cardiology Referred by:: Dr. Magaña Reason for Consultation:: SOB possible CHF - History of Present Illness Chief Complaint: sob History of Present Illness: 68 year old woman with pmh HTN, DMII, hypothyroid, COPD, breast ca and brain ca s/p resection, reported primary lung CA with reported chemo and RT admitted with sob. pt seen and examined today in nad. states she is still feeling sob and having trouble bringing up phlegm. denies chest pain, palpitations, pnd, orthopnea, or LE edema. ECHO done today showing normal LV systolic function and no sig valvular abnl with mildly elevated RVSP - History Source History Provided By: Patient, Medical Record Limitations to Obtaining History: No Limitations - Past Medical History Cardio/Vascular: Yes: HTN, Hyperlipdemia Pulmonary: Yes: Bronchitis, Cancer (mets), COPD, Pneumonia. No: Asthma, O2 Dependent, Previously Intubated, Pulmonary Embolus, Pulmonary Fibrosis, Sleep Apnea Endocrine: Yes: Diabetes Mellitus - Alcohol/Substance Use Hx Alcohol Use: No - Smoking History Smoking history: Former smoker Have you smoked in the past 12 months: Yes Aproximately how many cigarettes per day: 30 If you are a former smoker, when did you quit?: last week Home Medications - Allergies Allergies/Adverse Reactions: Allergies Allergy/AdvReac Type Severity Reaction Status Date / Time No Known Allergies Allergy Verified 04/14/19 12:20 - Home Medications Home Medications: Ambulatory Orders Amlodipine Besylate [Norvasc -] 5 mg PO DAILY 11/01/14 LORazepam [Ativan -] 1 mg PO Q6H PRN 11/01/14 Levothyroxine [Synthroid -] 112 mcg PO DAILY 11/01/14 Sertraline HCl [Zoloft -] 200 mg PO HS 11/01/14 Family Medical History Family History: Denies Review of Systems - Review of Systems Constitutional: denies: No Symptoms, Chills, Diaphoresis, Fever, Lethargy, Loss of Appetite, Malaise, Night Sweats, Unintentional Wgt. Loss, Weakness, Other Eyes: denies: No Symptoms, Blind Spots, Blurred Vision, Double Vision, Eye Pain , Floaters, Photophobia, Recent Change in Vision, Other HENT: denies: No Symptoms, Difficult Swallowing, Ear Discharge, Ear Pain, Epistaxis, Gingival Bleeding, Hearing Loss, Mouth Swelling, Nasal Congestion, Ocular Prosthesis, Throat Pain, Toothache, Ringing in Ears, Other Neck: denies: No Symptoms, Decreased ROM, Lumps, Pain on Movement, Stiffness, Swollen Glands, Tenderness, Other Cardiovascular: reports: Shortness of Breath. denies: No Symptoms, Chest Pain, Edema, Palpitations, Other Respiratory: reports: Cough, Exercise Intolerance, SOB, SOB on Exertion. denies : No Symptoms, Hemoptysis, Orthopnea, PND, Snoring, Wheezing, Other Gastrointestinal: denies: No Symptoms, Abdominal Pain, Bloating, Constipation, Diarrhea, Dysphagia, Indigestion, Melena, Nausea, Rectal Bleeding, Vomiting, Vomiting Blood, Other Genitourinary: denies: No Symptoms, Burning, Discharge, Dysuria, Flank Pain, Frequency, Hematuria, Incontinence, Lesions, Menses, Pain, Testicular Mass, Testicular Pain, Testicular Swelling, Urgency, Vaginal Bleeding, Other Breasts: denies: No Symptoms Reported, See HPI, Breast Implants, Discharge from Nipple, Lumps, Pain, Skin Changes, Other Musculoskeletal: denies: No Symptoms, Back Pain, Crepitus, Decreased ROM, Extremity Pain, Joint Pain, Joint Swelling, Muscle Pain, Muscle Cramps, Muscle Weakness, Other Integumentary: denies: No Symptoms, Blister, Bruising, Change in Color, Eczema, Erythema, Incision, Lesions, Lump, Pallor, Pruritis, Rash, Wound, Other Endocrine: denies: No Symptoms, Excessive Sweating, Flushing, Increased Hunger, Increased Thirst, Intolerance to Cold, Intolerance to Heat, Unexplained Weight Gain, Unexplained Weight Loss, Other Hematology/Lymphatic: denies: No Symptoms, Easily Bruised, Excessive Bleeding, Swollen Glands, Other Psychiatric: denies: No Symptoms, Altered Sleep Pattern, Anxiety, Depression, Hallucinations, Panic, Paranoia, Suicidal, Other Vital Signs: Vital Signs Temperature 98 F 04/16/19 14:17 Pulse Rate 77 04/16/19 14:17 Respiratory Rate 20 04/16/19 14:17 Blood Pressure 133/75 04/16/19 14:17 O2 Sat by Pulse Oximetry (%) 99 04/16/19 09:00 Constitutional: Yes: No Distress, Calm Eyes: Yes: Conjunctiva Clear, EOM Intact HENT: Yes: Atraumatic, Normocephalic Neck: Yes: Supple, Trachea Midline Respiratory: Yes: Regular, Diminished, On Nasal O2, Rhonchi, SOB. No: Rales Gastrointestinal: Yes: Normal Bowel Sounds, Soft Cardiovascular: Yes: Regular Rate and Rhythm. No: Bradycardia, Tachycardia, Pulse Irregular, Gallop, Rub, Varicosities JVD: No Carotid Bruit: No PMI: Non-Displaced Heart Sounds: Yes: S1, S2. No: Split S2, S3, S4, Clicks, Gallop, Rub, Bruit Murmur: No: Systolic Murmur, Diastolic Murmur Extremities: Yes: WNL Edema: No Peripheral Pulses WNL: Yes Neurological: Yes: Alert, Oriented Psychiatric: Yes: Alert, Oriented - Other Data Labs, Other Data: CBC, BMP 04/15/19 06:05 04/15/19 06:05 INR, PTT INR 1.15 (0.83-1.09) H 04/14/19 12:45 NSR 85bpm, rightward axis Imaging - Results Chest X-ray: Report Reviewed, Image Reviewed Cat Scan: Report Reviewed EKG: Report Reviewed, Image Reviewed Other: Report Reviewed, Image Reviewed Assessment/Plan 68 year old woman with pmh HTN, DMII, hypothyroid, COPD, breast ca and brain ca s/p resection, reported primary lung CA with reported chemo and RT admitted with sob. denies chest pain, palpitations, pnd, orthopnea, or LE edema. ECHO done today showing normal LV systolic function and no sig valvular abnl with mildly elevated RVSP SOB -not c/w CHF -AE COPD and h/o lung CA -ECHO done today showing normal LV systolic function and no sig valvular abnl with mildly elevated RVSP -no ischemia on ekg -cardiac enzymes wnl -pt does not require diuresis -cont treatment as per pulm reccs -no additional cardiac work up is needed at this time. will see as needed. please call with any additional questions.
[2019-04-16] MEDS: LORazepam 0.5 MG TABLET PO PRN (21:32)
[2019-04-16] MEDS: SERTRALINE HCL 50 MG TABLET (FP) PO SCH (21:32)
[2019-04-17] MEDS: INSULIN SLIDING SCALE (NOVOLOG) 1 VIAL SQ SCH ×4 (06:22→22:25)
[2019-04-17] MEDS: LEVOTHYROXINE NA 112 MCG TABLET (FP) PO SCH (06:23)
[2019-04-17] MEDS: ALBUTEROL SO4 2.5/IPRATROPIUM 0.5 INH SOL 3 ML VIAL.NEB. NEB SCH (08:53)
[2019-04-17] MEDS: ALBUTEROL SO4 0.083% IH SOL 2.5 MG/3 ML VIAL.NEB. NEB PRN (08:54)
[2019-04-17] MEDS: ACETYLCYSTEINE 20% 200MG/ML 4 ML VIAL *FOR ORAL / INH USE ONLY NEB SCH ×4 (08:54→21:10)
[2019-04-17] MEDS: methylPREDNISolone NA SUCC 40 MG/1 ML VIAL IVPUSH SCH (09:45)
[2019-04-17] MEDS: HEPARIN NA (PORCINE) 5,000 UNITS/ML 1ML VIAL SQ SCH ×2 (09:45→22:19)
[2019-04-17] MEDS: amLODIPine BESYLATE 5 MG TABLET (FP) PO SCH (09:45)
--- NOTE | 2019-04-17 09:57 | PN ---
Progress Note, Physician - Current Medication List Current Medications: Active Medications Acetylcysteine (Mucomyst 20 Oral / Inh Use Only*) 400 mg NEB RQID [facility] Last Admin: 04/17/19 08:54 Dose: 400 mg Albuterol Sulfate (Ventolin 0.083% Nebulizer Soln -) 1 amp NEB Q4H PRN PRN Reason: SHORT OF BREATH/WHEEZING Last Admin: 04/17/19 08:54 Dose: 1 amp Albuterol Sulfate (Ventolin 0.083% Nebulizer Soln -) 1 amp NEB RQID [facility] Amlodipine Besylate (Norvasc -) 5 mg PO DAILY [facility] Last Admin: 04/17/19 09:45 Dose: 5 mg Guaifenesin (Mucinex Dm -) 2 tablet PO BID [facility] Heparin Sodium (Porcine) (Heparin -) 5,000 unit SQ BID [facility] Last Admin: 04/17/19 09:45 Dose: 5,000 unit Insulin Aspart (Novolog Vial Sliding Scale -) 1 vial SQ [facility]; Protocol Last Admin: 04/17/19 06:22 Dose: Not Given Levothyroxine Sodium (Synthroid -) 112 mcg PO ACBK [facility] Last Admin: 04/17/19 06:23 Dose: 112 mcg Lorazepam (Ativan -) 1 mg PO BID PRN PRN Reason: ANXIETY Last Admin: 04/16/19 21:32 Dose: 1 mg Montelukast Sodium (Singulair -) 10 mg PO HS [facility] Prednisone (Deltasone -) 30 mg PO BID [facility] Sertraline HCl (Zoloft -) 200 mg PO [facility] Last Admin: 04/16/19 21:32 Dose: 200 mg - Objective Vital Signs: Vital Signs Temperature 97.6 F 04/17/19 09:44 Pulse Rate 70 04/17/19 09:44 Respiratory Rate 19 04/17/19 09:44 Blood Pressure 136/61 04/17/19 09:44 O2 Sat by Pulse Oximetry (%) 99 04/16/19 20:42 Cardiovascular: Yes: Regular Rate and Rhythm Respiratory: Yes: Diminished, On Nasal O2 Gastrointestinal: Yes: Normal Bowel Sounds, Soft Labs: CBC, BMP 04/15/19 06:05 04/15/19 06:05 INR, PTT INR 1.15 (0.83-1.09) H 04/14/19 12:45 Problem List - Problems (1) COPD exacerbation Assessment/Plan: IV STEROIDS--PO NEBS PULM CONSULT MU[facility] ADD MICINEX Code(s): J44.1 - CHRONIC OBSTRUCTIVE PULMONARY DISEASE W (ACUTE) EXACERBATION (2) Breast cancer Assessment/Plan: ONCOLOGY CONSULT Code(s): C50.919 - MALIGNANT NEOPLASM OF UNSP SITE OF UNSPECIFIED FEMALE BREAST (3) Breast cancer metastasized to brain Assessment/Plan: obtain old records Code(s): C50.919 - MALIGNANT NEOPLASM OF UNSP SITE OF UNSPECIFIED FEMALE BREAST ; C79.31 - SECONDARY MALIGNANT NEOPLASM OF BRAIN (4) Breast cancer metastasized to lung Assessment/Plan: Oncology consult noted CT SCAN NOTED Code(s): C50.919 - MALIGNANT NEOPLASM OF UNSP SITE OF UNSPECIFIED FEMALE BREAST ; C78.00 - SECONDARY MALIGNANT NEOPLASM OF UNSPECIFIED LUNG (5) Diabetes Code(s): E11.9 - TYPE 2 DIABETES MELLITUS WITHOUT COMPLICATIONS
[2019-04-17] MEDS ORDERED: PT OWN MED DRAWER 7, Y5N ONE ×2 (10:44→21:13)
[2019-04-17] MEDS: predniSONE 10 MG TABLET (UD) PO SCH ×2 (11:00→22:18)
[2019-04-17] MEDS: guaiFENesin/D-METHORPHAN TAB.ER.12H PO SCH ×2 (11:01→22:18)
[2019-04-17] MEDS: BUDESONIDE/FORMETEROL FUMARATE 160/4.5 mcg INHALER IH SCH ×2 (11:01→22:24)
[2019-04-17] MEDS ORDERED: ACETAMINOPHEN 325 MG TABLET (FP) PO PRN (11:01)
--- NOTE | 2019-04-17 12:13 | PN ---
Progress Note (short form) - Note Progress Note: PULMONARY SUBJECTIVE IMPROVEMENT COUGH W SCANT SPUTUM NO CP VSS/AFEBRILE Constitutional: Yes: NAD, Anxious Eyes: Yes: Conjunctiva Clear, EOM Intact HENT: Yes: Other (scar) Neck: Yes: Supple, Trachea Midline Cardiovascular: Yes: Regular Rate and Rhythm Respiratory: Yes: Cough, Diminished, On Nasal O2, Rhonchi, Wheezes. No: Accessory Muscle Use, Rales, Stridor ...Inspection: Yes: WNL ...Clubbing: No Gastrointestinal: Yes: Normal Bowel Sounds, Soft Renal/: Yes: WNL Musculoskeletal: Yes: WNL Extremities: Yes: WNL Edema: No Peripheral Pulses WNL: Yes Integumentary: Yes: WNL Neurological: Yes: WNL, Alert, Oriented ...Motor Strength: WNL Psychiatric: Yes: WNL, Alert, Oriented Labs: NOTED Problem List - Problems (1) Smoker Code(s): F17.200 - NICOTINE DEPENDENCE, UNSPECIFIED, UNCOMPLICATED (2) Breast cancer Code(s): C50.919 - MALIGNANT NEOPLASM OF UNSP SITE OF UNSPECIFIED FEMALE BREAST (3) Breast cancer metastasized to brain Code(s): C50.919 - MALIGNANT NEOPLASM OF UNSP SITE OF UNSPECIFIED FEMALE BREAST ; C79.31 - SECONDARY MALIGNANT NEOPLASM OF BRAIN (4) Breast cancer metastasized to lung Code(s): C50.919 - MALIGNANT NEOPLASM OF UNSP SITE OF UNSPECIFIED FEMALE BREAST ; C78.00 - SECONDARY MALIGNANT NEOPLASM OF UNSPECIFIED LUNG (5) COPD exacerbation Code(s): J44.1 - CHRONIC OBSTRUCTIVE PULMONARY DISEASE W (ACUTE) EXACERBATION (6) Diabetes Code(s): E11.9 - TYPE 2 DIABETES MELLITUS WITHOUT COMPLICATIONS (7) Low back pain Code(s): M54.5 - LOW BACK PAIN Assessment/Plan Medrol BD TX standing and PRN Would monitor off ABX low suspicion for bacterial infection O2 as needed to maintain saturation VTE prophylaxis No smoking counseled Josh RUVALCABA MD
[2019-04-17] MEDS: ALBUTEROL SO4 0.083% IH SOL 2.5 MG/3 ML VIAL.NEB. NEB SCH ×3 (12:34→21:10)
[2019-04-17] MEDS: dilTIAZem HCL 30 MG TABLET (FP) PO SCH ×2 (17:46→23:26)
[2019-04-17] MEDS ORDERED: APIXABAN 5 MG TABLET PO SCH (22:00)
[2019-04-17 22:15] LABS: CALCIUM 8.8 mg/dL (8.5-10.1); POTASSIUM 4.4 mmol/L (3.5-5.1)
[2019-04-17] MEDS: SERTRALINE HCL 50 MG TABLET (FP) PO SCH (22:17)
[2019-04-17] MEDS: MONTELUKAST NA 10 MG TABLET PO SCH (22:18)
[2019-04-18] MEDS: LEVOTHYROXINE NA 112 MCG TABLET (FP) PO SCH (06:06)
[2019-04-18] MEDS: dilTIAZem HCL 30 MG TABLET (FP) PO SCH (06:06)
[2019-04-18] MEDS: INSULIN SLIDING SCALE (NOVOLOG) 1 VIAL SQ SCH ×4 (06:07→21:41)
[2019-04-18] MEDS: ACETYLCYSTEINE 20% 200MG/ML 4 ML VIAL *FOR ORAL / INH USE ONLY NEB SCH ×4 (08:20→21:10)
[2019-04-18] MEDS: ALBUTEROL SO4 0.083% IH SOL 2.5 MG/3 ML VIAL.NEB. NEB SCH ×4 (08:21→21:10)
[2019-04-18] MEDS ORDERED: PT OWN MED DRAWER 7, Y5N ONE (10:41)
[2019-04-18] MEDS: predniSONE 10 MG TABLET (UD) PO SCH (10:48)
[2019-04-18] MEDS: amLODIPine BESYLATE 5 MG TABLET (FP) PO SCH (10:48)
[2019-04-18] MEDS: guaiFENesin/D-METHORPHAN TAB.ER.12H PO SCH ×2 (10:49→21:44)
[2019-04-18] MEDS: HEPARIN NA (PORCINE) 5,000 UNITS/ML 1ML VIAL SQ SCH ×2 (10:49→21:41)
[2019-04-18] MEDS: BUDESONIDE/FORMETEROL FUMARATE 160/4.5 mcg INHALER IH SCH ×2 (10:49→21:44)
--- NOTE | 2019-04-18 11:14 | PN ---
Progress Note, Physician History of Present Illness: WANTS TO GO HOME DISCUSSED W/U WITH PATIENT AND DAUGHTER SUGGESTED A STRESS TEST IN OR OUTPATIENT - Current Medication List Current Medications: Active Medications Acetaminophen (Tylenol -) 650 mg PO Q6H PRN PRN Reason: PAIN LEVEL 2-7 Acetylcysteine (Mucomyst 20 Oral / Inh Use Only*) 400 mg NEB RQID [facility] Last Admin: 04/18/19 08:20 Dose: 400 mg Albuterol Sulfate (Ventolin 0.083% Nebulizer Soln -) 1 amp NEB Q4H PRN PRN Reason: SHORT OF BREATH/WHEEZING Last Admin: 04/17/19 08:54 Dose: 1 amp Albuterol Sulfate (Ventolin 0.083% Nebulizer Soln -) 1 amp NEB RQID [facility] Last Admin: 04/18/19 08:21 Dose: 1 amp Amlodipine Besylate (Norvasc -) 5 mg PO DAILY [facility] Last Admin: 04/18/19 10:48 Dose: 5 mg Budesonide/Formoterol Fumarate (Symbicort 160/4.5mcg -) 2 puff IH BID [facility] Last Admin: 04/18/19 10:49 Dose: 2 puff Guaifenesin (Mucinex Dm -) 2 tablet PO BID [facility] Last Admin: 04/18/19 10:49 Dose: 2 tablet Heparin Sodium (Porcine) (Heparin -) 5,000 unit SQ BID [facility] Last Admin: 04/18/19 10:49 Dose: 5,000 unit Insulin Aspart (Novolog Vial Sliding Scale -) 1 vial SQ [facility]; Protocol Last Admin: 04/18/19 06:07 Dose: Not Given Levothyroxine Sodium (Synthroid -) 112 mcg PO ACBK [facility] Last Admin: 04/18/19 06:06 Dose: 112 mcg Lorazepam (Ativan -) 1 mg PO BID PRN PRN Reason: ANXIETY Last Admin: 04/16/19 21:32 Dose: 1 mg Montelukast Sodium (Singulair -) 10 mg PO HS [facility] Last Admin: 04/17/19 22:18 Dose: 10 mg Prednisone (Deltasone -) 30 mg PO DAILY [facility] Sertraline HCl (Zoloft -) 200 mg PO HS [facility] Last Admin: 04/17/19 22:17 Dose: 200 mg - Objective Vital Signs: Vital Signs Temperature 98.3 F 04/18/19 08:44 Pulse Rate 76 04/18/19 08:44 Respiratory Rate 18 04/18/19 08:44 Blood Pressure 135/59 L 04/18/19 08:44 O2 Sat by Pulse Oximetry (%) 96 04/18/19 08:45 Cardiovascular: Yes: Regular Rate and Rhythm Respiratory: Yes: CTA Bilaterally, On Nasal O2 Gastrointestinal: Yes: Normal Bowel Sounds, Soft Labs: CBC, BMP 04/15/19 06:05 04/17/19 21:34 INR, PTT INR 1.15 (0.83-1.09) H 04/14/19 12:45 Problem List - Problems (1) COPD exacerbation Assessment/Plan: IV STEROIDS--PO NEBS PULM CONSULT MUCOMYST ADD MICINEX REFUSED CTA STRESS TEST FOR THE DYSPNEA PRE AND POST SATS Code(s): J44.1 - CHRONIC OBSTRUCTIVE PULMONARY DISEASE W (ACUTE) EXACERBATION (2) Breast cancer Assessment/Plan: ONCOLOGY CONSULT Code(s): C50.919 - MALIGNANT NEOPLASM OF UNSP SITE OF UNSPECIFIED FEMALE BREAST (3) Breast cancer metastasized to brain Assessment/Plan: obtain old records Code(s): C50.919 - MALIGNANT NEOPLASM OF UNSP SITE OF UNSPECIFIED FEMALE BREAST ; C79.31 - SECONDARY MALIGNANT NEOPLASM OF BRAIN (4) Breast cancer metastasized to lung Assessment/Plan: Oncology consult noted CT SCAN NOTED Code(s): C50.919 - MALIGNANT NEOPLASM OF UNSP SITE OF UNSPECIFIED FEMALE BREAST ; C78.00 - SECONDARY MALIGNANT NEOPLASM OF UNSPECIFIED LUNG (5) Diabetes Code(s): E11.9 - TYPE 2 DIABETES MELLITUS WITHOUT COMPLICATIONS
--- NOTE | 2019-04-18 13:04 | EKG ---
Test Reason : Blood Pressure : / mmHG Vent. Rate : 073 BPM Atrial Rate : 073 BPM P-R Int : 130 ms QRS Dur : 086 ms QT Int : 362 ms P-R-T Axes : 095 094 089 degrees QTc Int : 398 ms NORMAL SINUS RHYTHM RIGHT ATRIAL ENLARGEMENT RIGHTWARD AXIS PULMONARY DISEASE PATTERN ABNORMAL ECG WHEN COMPARED WITH ECG OF 14-APR-2019 12:38, NO SIGNIFICANT CHANGE WAS FOUND Confirmed by SWETA BAUTISTA MD ([id number]) on 04/18/2019 1:04:10 PM Referred By: Nelson MUNOZ Confirmed By:SWETA BAUTISTA MD
[2019-04-18] MEDS ORDERED: INSULIN SLIDING SCALE (NOVOLOG) 1 VIAL SQ ONE (18:58)
[2019-04-18] MEDS: MONTELUKAST NA 10 MG TABLET PO SCH (21:40)
[2019-04-18] MEDS: SERTRALINE HCL 50 MG TABLET (FP) PO SCH (21:40)
[2019-04-19] MEDS: INSULIN SLIDING SCALE (NOVOLOG) 1 VIAL SQ SCH ×2 (06:36→12:02)
[2019-04-19] MEDS: LEVOTHYROXINE NA 112 MCG TABLET (FP) PO SCH (06:36)
[2019-04-19] MEDS: ALBUTEROL SO4 0.083% IH SOL 2.5 MG/3 ML VIAL.NEB. NEB SCH ×3 (07:40→16:21)
[2019-04-19] MEDS: ACETYLCYSTEINE 20% 200MG/ML 4 ML VIAL *FOR ORAL / INH USE ONLY NEB SCH ×3 (07:40→16:21)
--- NOTE | 2019-04-19 08:08 | DS ---
Physical Examination Vital Signs: Vital Signs Temperature 98.8 F 04/19/19 06:15 Pulse Rate 70 04/19/19 06:15 Respiratory Rate 18 04/19/19 06:15 Blood Pressure 139/77 04/19/19 06:15 O2 Sat by Pulse Oximetry (%) 96 04/18/19 20:26 Findings/Remarks: FEELS BETTER ON PREDNSIONE Constitutional: Yes: Mild Distress Cardiovascular: Yes: Regular Rate and Rhythm Respiratory: Yes: Diminished, On Nasal O2, Rhonchi Gastrointestinal: Yes: Soft Renal/: Yes: WNL Musculoskeletal: Yes: Muscle Weakness Edema: No Peripheral Pulses WNL: Yes Integumentary: Yes: WNL Wound/Incision: Yes: Clean/Dry Neurological: Yes: WNL ...Motor Strength: WNL Psychiatric: Yes: Other Labs: CBC, BMP 04/15/19 06:05 04/17/19 21:34 Discharge Summary Problems reviewed: Yes Reason For Visit: ACUTE COPD Current Active Problems Breast cancer (Acute) Breast cancer metastasized to brain (Acute) Breast cancer metastasized to lung (Acute) COPD exacerbation (Acute) Diabetes (Acute) Smoker (Acute) Procedures: Principal: CT CHEST Hospital Course: ADMITTED COPD EXACERBATION TREATED WITH STEROIDS IV FEELING BETTER CHEANGED PREDNISONE AND NOW TAPER OUTPATIENT SMOKING CESSATION Plan of Treatment: SMOKING CESSATION PREDNISONE THERAPY/TAPER Condition: Improved - Instructions Diet, Activity, Other Instructions: see dr novak FridayApril 12PM this week for follow up and tapering of meds also to schedule a stress test Referrals: Nena Novak MD [Primary Care Provider] - 04/20/19 Disposition: VNS/HOME HEALTH CARE - Home Medications Comprehensive Discharge Medication List: Ambulatory Orders Amlodipine Besylate [Norvasc -] 5 mg PO DAILY 11/01/14 LORazepam [Ativan] 1 mg PO Q6H PRN 11/01/14 Levothyroxine [Synthroid -] 112 mcg PO DAILY 11/01/14 Sertraline HCl [Zoloft -] 200 mg PO HS 11/01/14 Albuterol 2.5/Ipratropium 0.5 [Duoneb -] 1 amp NEB RQID #120 amp 04/18/19 Budesonide/Formeterol Fumarate [SYMBICORT 160/4.5mcg -] 2 puff IH BID #1 inhaler 04/18/19 Guaifenesin Dm [Mucinex Dm -] 2 tablet PO BID tab.er.12h 04/18/19 Montelukast Na [Singulair -] 10 mg PO HS #30 tablet 04/18/19 predniSONE [Deltasone -] 30 mg PO DAILY #60 tablet 04/18/19 Prescription Drug Monitoring Program (I-STOP) results: I-STOP not reviewed
[2019-04-19] MEDS ORDERED: PT OWN MED DRAWER 7, Y5N ONE (09:08)
[2019-04-19] MEDS: HEPARIN NA (PORCINE) 5,000 UNITS/ML 1ML VIAL SQ SCH (09:18)
[2019-04-19] MEDS: guaiFENesin/D-METHORPHAN TAB.ER.12H PO SCH (09:18)
[2019-04-19] MEDS: amLODIPine BESYLATE 5 MG TABLET (FP) PO SCH (09:18)
[2019-04-19] MEDS: BUDESONIDE/FORMETEROL FUMARATE 160/4.5 mcg INHALER IH SCH (09:19)
[2019-04-19] MEDS ORDERED: predniSONE 10 MG TABLET (UD) PO SCH (10:00)
--- NOTE | 2019-04-19 13:48 | PN ---
Progress Note (short form) - Note Progress Note: PULMONARY Still some shortness of breath but slightly better. Occasional cough. Vital Signs Period Temp Pulse Resp BP Sys/Dhillon Pulse Ox Last 24 Hr 98 F-98.8 F 60-108 18-19 128-151/61-96 95-98 Gen: mildly tachypneic with speaking Heart: RRR Lung: scattered rhonchi Abd: soft, nontender Ext: no edema CBC, BMP 04/15/19 06:05 04/17/19 21:34 Active Medications Acetaminophen (Tylenol -) 650 mg PO Q6H PRN PRN Reason: PAIN LEVEL 2-7 Acetylcysteine (Mucomyst 20 Oral / Inh Use Only*) 400 mg NEB RQID [facility] Last Admin: 04/19/19 11:20 Dose: 400 mg Albuterol Sulfate (Ventolin 0.083% Nebulizer Soln -) 1 amp NEB Q4H PRN PRN Reason: SHORT OF BREATH/WHEEZING Last Admin: 04/17/19 08:54 Dose: 1 amp Albuterol Sulfate (Ventolin 0.083% Nebulizer Soln -) 1 amp NEB RQID [facility] Last Admin: 04/19/19 11:21 Dose: 1 amp Amlodipine Besylate (Norvasc -) 5 mg PO DAILY [facility] Last Admin: 04/19/19 09:18 Dose: 5 mg Budesonide/Formoterol Fumarate (Symbicort 160/4.5mcg -) 2 puff IH BID [facility] Last Admin: 04/19/19 09:19 Dose: 2 puff Guaifenesin (Mucinex Dm -) 2 tablet PO BID [facility] Last Admin: 04/19/19 09:18 Dose: 2 tablet Heparin Sodium (Porcine) (Heparin -) 5,000 unit SQ BID [facility] Last Admin: 04/19/19 09:18 Dose: 5,000 unit Insulin Aspart (Novolog Vial Sliding Scale -) 1 vial SQ ACHS [facility]; Protocol Last Admin: 04/19/19 12:02 Dose: Not Given Levothyroxine Sodium (Synthroid -) 112 mcg PO ACBK [facility] Last Admin: 04/19/19 06:36 Dose: 112 mcg Lorazepam (Ativan -) 1 mg PO BID PRN PRN Reason: ANXIETY Last Admin: 04/16/19 21:32 Dose: 1 mg Montelukast Sodium (Singulair -) 10 mg PO [facility] Last Admin: 04/18/19 21:40 Dose: 10 mg Prednisone (Deltasone -) 30 mg PO DAILY [facility] Last Admin: 04/19/19 09:18 Dose: 30 mg Sertraline HCl (Zoloft -) 200 mg PO [facility] Last Admin: 04/18/19 21:40 Dose: 200 mg A/P Acute COPD Exacerbation Pulmonary HTN HTN DM Hypothyroidism h/o Lung Ca s/p chemo/RT h/o Breast Ca - slow prednisone taper - inhaled bronchodilators - O2 to keep SpO2 >90% - DVT prophylaxis
[2019-04-19 13:53] VITALS: BP 138/71; PULSE 88; TEMP 98.7
== END 2019-04-19 17:18 | disposition home health service (06) | DRG 191 ==
LOC: JER 11:48 → JERBED 16:39 → J5S 18:25 → J4S 19:29
PROVIDERS: ADMIT Family Medicine; ATTEND Family Medicine
DX: J44.1 Chronic obstructive pulmonary disease with (acute) exacerbation (principal); C78.00 Secondary malignant neoplasm of unspecified lung; C79.31 Secondary malignant neoplasm of brain; E11.9 Type 2 diabetes mellitus without complications; C50.912 Malignant neoplasm of unspecified site of left female breast; I10 Essential (primary) hypertension; E03.9 Hypothyroidism, unspecified; F41.9 Anxiety disorder, unspecified; Z87.891 Personal history of nicotine dependence; E87.5 Hyperkalemia; I27.20 Pulmonary hypertension, unspecified
CPT/HCPCS: 36415; 71045-TC-FY; 71250-TC; 80048; 80053; 82378; 82550; 82553; 82962; 83880; 84443; 84484; 85025; 85610; 93005; 93010; 93306-TC; 94640; 94761; 97116-GP; 97161-GP; 99284-25; J1644

== ENCOUNTER 2021-03-14 12:33 | Emergency (ER) | payer OTHER, BC ==
[2021-03-14 13:23] VITALS: BMI 17.1
[2021-03-14] MEDS ORDERED: SODIUM CHLORIDE 0.9% 500 ML INFUS.BAG IV ONE (13:57)
[2021-03-14] MEDS: ALBUTEROL SO4 2.5/IPRATROPIUM 0.5 INH SOL 3 ML VIAL.NEB. NEB ONE ×3 (14:15→15:05)
[2021-03-14] MEDS ORDERED: ALBUTEROL SO4 0.5 % INH SOLN 2.5 MG/0.5 ML VIAL.NEB. NEB ONE (14:19)
[2021-03-14] MEDS ORDERED: ALBUTEROL SO4 0.083% IH SOL 2.5 MG/3 ML VIAL.NEB. NEB ONE (14:19)
[2021-03-14] MEDS ORDERED: ALBUTEROL SO4 2.5/IPRATROPIUM 0.5 INH SOL 3 ML VIAL.NEB. NEB ONE (14:23)
[2021-03-14 14:54] LABS: BASO % 0.5 % (0-2.0); EOS % 0.7 % (0-4.5); HEMATOCRIT 36.9 % (32.4-45.2); HEMOGLOBIN 12.1 GM/dL (10.7-15.3); LYMPH % 14.5 % (8-40); MCH 26.2 pg (25.7-33.7); MCHC 32.8 g/dl (32.0-36.0); MEAN CELL VOLUME 79.9 fl (80-96); MEAN PLT VOLUME 7.4 fl (7.5-11.1); MONO % 4.7 % (3.8-10.2); NEUT % 79.6 % (42.8-82.8); PLATELET COUNT 369 10^3/uL (134-434); RBC 4.62 M/mm3 (3.60-5.2); RDW 17.1 % (11.6-15.6); WHITE BLOOD COUNT 10.3 K/mm3 (4.0-10.0)
[2021-03-14 15:17] LABS: CHLORIDE 101 mmol/L (98-107); SODIUM 136 mmol/L (136-145)
[2021-03-14 15:19] LABS: MAGNESIUM 2.4 mg/dL (1.8-2.4)
[2021-03-14 15:20] LABS: CALCIUM 9.7 mg/dL (8.5-10.1)
[2021-03-14 15:21] LABS: ALBUMIN 2.8 g/dl (3.4-5.0); ANION GAP 10 MMOL/L (8-16); BLOOD UREA NITROGEN 13.8 mg/dL (7-18); CO2 26 mmol/L (21-32); GLUCOSE,RANDOM 91 mg/dL (74-106)
[2021-03-14 15:24] LABS: CREATININE 1.1 mg/dL (0.55-1.3); SGOT/AST 14 U/L (15-37); SGPT/ALT 10 U/L (13-61)
[2021-03-14 15:26] LABS: BILIRUBIN,TOTAL 0.4 mg/dL (0.2-1); TOT PROT 8.2 g/dl (6.4-8.2)
[2021-03-14 15:27] LABS: ALK PHOS 93 U/L (45-117); N-TERMINAL BNP 2034.7 pg/ml (5-125)
[2021-03-14] MEDS ORDERED: methylPREDNISolone NA SUCC 125 MG/2 ML VIAL IVPUSH ONE (15:48)
[2021-03-14] MEDS ORDERED: methylPREDNISolone NA SUCC 125 MG/2 ML VIAL ONE (15:59)
[2021-03-14 18:40] VITALS: BP 145/79; PULSE 76; TEMP 97.4
[2021-03-14 19:45] LABS: EPI CELLS 8 /uL (0-25.1); HYALINE CASTS 6 /uL (0-3.1); URINE APPEARANCE CLEAR; URINE BACTERIA 18 /uL (0-1359); URINE BILIRUBIN NEGATIVE (NEGATIVE); URINE COLOR DK YELLOW; URINE GLUCOSE (UA) NEGATIVE (NEGATIVE); URINE KETONE TRACE (NEGATIVE); URINE LEUK ESTERASE NEGATIVE (NEGATIVE); URINE NITRITE NEGATIVE (NEGATIVE); URINE PROTEIN 1+ (NEGATIVE); URINE RBC 12 /uL (0-23.9); URINE WBC 14 /uL (0-25.8)
== END 2021-03-14 19:23 | disposition home or self-care (01) ==
LOC: JER 12:33
PROC: 3E033GC Introduction of Other Therapeutic Substance into Peripheral Vein, Percutaneous Approach (ICD-10-PCS; principal; 2021-03-14)
PROC: 3E0F7GC Introduction of Other Therapeutic Substance into Respiratory Tract, Via Natural or Artificial Opening (ICD-10-PCS; 2021-03-14)
DX: J20.9 Acute bronchitis, unspecified (principal)
CPT/HCPCS: 36415; 71046-TC-FY; 71275-TC; 80053; 81003; 82550; 83735; 83880; 84439; 84443; 84484; 85025; 87077; 87086; 87804; 93005; 93010; 99285-25; C9803; U0003; U0005

== ENCOUNTER 2021-07-11 08:59 | Inpatient (IN) | payer OTHER, BC ==
[2021-07-11 09:08] VITALS: BMI 16.8
[2021-07-11] MEDS ORDERED: methylPREDNISolone NA SUCC 125 MG/2 ML VIAL IVPUSH ONE (09:50)
[2021-07-11] MEDS ORDERED: SODIUM PHOSPHATE/NA BIPHOS 133 ML ENEMA PR ONE (09:50)
[2021-07-11] MEDS ORDERED: LACTATED RINGERS SOLUTION 1000 ML INFUS.BAG IV ONE (09:51)
[2021-07-11] MEDS ORDERED: methylPREDNISolone NA SUCC 125 MG/2 ML VIAL ONE (10:35)
[2021-07-11] MEDS: ALBUTEROL SO4 2.5/IPRATROPIUM 0.5 INH SOL 3 ML VIAL.NEB. NEB SCH ×6 (10:35→19:59)
[2021-07-11 10:46] LABS: BASO % 0.7 % (0-2.0); EOS % 0.3 % (0-4.5); HEMATOCRIT 34.6 % (32.4-45.2); HEMOGLOBIN 11.1 GM/dL (10.7-15.3); LYMPH % 18.6 % (8-40); MCH 26.5 pg (25.7-33.7); MCHC 32.2 g/dl (32.0-36.0); MEAN CELL VOLUME 82.4 fl (80-96); MEAN PLT VOLUME 6.7 fl (7.5-11.1); MONO % 4.1 % (3.8-10.2); NEUT % 76.3 % (42.8-82.8); PLATELET COUNT 472 10^3/uL (134-434); RDW 15.2 % (11.6-15.6); WHITE BLOOD COUNT 11.5 K/mm3 (4.0-10.0)
[2021-07-11 10:52] LABS: INR 1.18 (0.83-1.09); PROTHROMBIN TIME (PATIENT) 13.6 SEC (9.7-13.0)
[2021-07-11 10:55] LABS: ACTIVATED PTT 45.2 SECONDS (25.2-36.5)
[2021-07-11 10:57] LABS: EPI CELLS >36 /uL (0-25.1); HYALINE CASTS 22 /uL (0-3.1); URINE APPEARANCE CLOUDY; URINE BACTERIA 691 /uL (0-1359); URINE BILIRUBIN NEGATIVE (NEGATIVE); URINE COLOR DK YELLOW; URINE GLUCOSE (UA) NEGATIVE (NEGATIVE); URINE KETONE TRACE (NEGATIVE); URINE LEUK ESTERASE 2+ (NEGATIVE); URINE NITRITE NEGATIVE (NEGATIVE); URINE PROTEIN 1+ (NEGATIVE); URINE RBC 7 /uL (0-23.9); URINE WBC 96 /uL (0-25.8)
[2021-07-11] MEDS ORDERED: POLYETHYLENE GLYCOL (HEALTHYLAX) 3350 17 GM PACKET PO ONE (11:11)
[2021-07-11] MEDS ORDERED: CEFTRIAXONE 1 GM in DEXTROSE 5%-WATER - 100 ML IVPB ONE (11:11)
[2021-07-11 11:13] LABS: ALBUMIN 2.6 g/dl (3.4-5.0); BLOOD UREA NITROGEN 11.1 mg/dL (7-18); MAGNESIUM 2.3 mg/dL (1.8-2.4)
[2021-07-11] MEDS ORDERED: POLYETHYLENE GLYCOL (HEALTHYLAX) 3350 17 GM PACKET ONE (11:13)
[2021-07-11 11:16] LABS: CREATININE 0.8 mg/dL (0.55-1.3)
[2021-07-11 11:18] LABS: BILIRUBIN,TOTAL 0.3 mg/dL (0.2-1); TOT PROT 7.2 g/dl (6.4-8.2)
[2021-07-11] MEDS ORDERED: ALBUTEROL SO4 0.083% IH SOL 2.5 MG/3 ML VIAL.NEB. NEB PRN (13:26)
[2021-07-11] MEDS ORDERED: CEFTRIAXONE 1 GM/50 ML BAG ONE (14:15)
[2021-07-11] MEDS ORDERED: LORazepam 1 MG TABLET ONE (14:15)
[2021-07-11] MEDS: LORazepam 1 MG TABLET PO SCH ×2 (14:39→18:31)
[2021-07-11] MEDS: NICOTINE 21 MG/24 HOURS TOPICAL PATCH TD SCH (18:24)
[2021-07-11] MEDS: methylPREDNISolone NA SUCC 40 MG/1 ML VIAL IVPUSH SCH (18:30)
[2021-07-11] MEDS: HEPARIN NA (PORCINE) 5,000 UNITS/ML 1ML VIAL SQ SCH (21:14)
[2021-07-11] MEDS: MONTELUKAST NA 10 MG TABLET PO SCH (21:15)
[2021-07-11] MEDS: BUDESONIDE/FORMETEROL FUMARATE 160/4.5 mcg INHALER IH SCH (21:21)
[2021-07-12] MEDS: methylPREDNISolone NA SUCC 40 MG/1 ML VIAL IVPUSH SCH ×3 (01:20→17:47)
[2021-07-12] MEDS: LORazepam 1 MG TABLET PO SCH ×4 (01:20→17:47)
[2021-07-12] MEDS: LEVOTHYROXINE NA 112 MCG TABLET (FP) PO SCH (06:04)
[2021-07-12] MEDS: ALBUTEROL SO4 2.5/IPRATROPIUM 0.5 INH SOL 3 ML VIAL.NEB. NEB SCH ×4 (07:51→20:00)
[2021-07-12] MEDS: ACETAMINOPHEN 325 MG TABLET (FP) PO PRN ×2 (09:54→15:41)
[2021-07-12] MEDS: HEPARIN NA (PORCINE) 5,000 UNITS/ML 1ML VIAL SQ SCH ×2 (09:55→21:24)
[2021-07-12] MEDS: NICOTINE 21 MG/24 HOURS TOPICAL PATCH TD SCH (09:55)
[2021-07-12] MEDS: BUDESONIDE/FORMETEROL FUMARATE 160/4.5 mcg INHALER IH SCH ×2 (09:55→21:25)
[2021-07-12] MEDS: MONTELUKAST NA 10 MG TABLET PO SCH (21:24)
[2021-07-13] MEDS: LORazepam 1 MG TABLET PO SCH ×4 (00:06→18:47)
[2021-07-13] MEDS: methylPREDNISolone NA SUCC 40 MG/1 ML VIAL IVPUSH SCH ×2 (01:19→09:49)
[2021-07-13] MEDS: LEVOTHYROXINE NA 112 MCG TABLET (FP) PO SCH (06:24)
[2021-07-13] MEDS: ALBUTEROL SO4 2.5/IPRATROPIUM 0.5 INH SOL 3 ML VIAL.NEB. NEB SCH ×4 (08:14→20:03)
[2021-07-13] MEDS: HEPARIN NA (PORCINE) 5,000 UNITS/ML 1ML VIAL SQ SCH ×2 (09:48→21:45)
[2021-07-13] MEDS: NICOTINE 21 MG/24 HOURS TOPICAL PATCH TD SCH (09:48)
[2021-07-13] MEDS: TRINTELLIX PO SCH (09:49)
[2021-07-13] MEDS: predniSONE 20 MG TABLET (UD) PO SCH ×2 (11:21→21:45)
[2021-07-13] MEDS: BUDESONIDE/FORMETEROL FUMARATE 160/4.5 mcg INHALER IH SCH ×2 (11:41→21:48)
[2021-07-13] MEDS: ACETAMINOPHEN 325 MG TABLET (FP) PO PRN (18:47)
[2021-07-13] MEDS: MONTELUKAST NA 10 MG TABLET PO SCH (21:45)
[2021-07-14] MEDS: LORazepam 1 MG TABLET PO SCH ×2 (00:17→06:08)
[2021-07-14] MEDS: LEVOTHYROXINE NA 112 MCG TABLET (FP) PO SCH (06:09)
[2021-07-14] MEDS: ALBUTEROL SO4 2.5/IPRATROPIUM 0.5 INH SOL 3 ML VIAL.NEB. NEB SCH (07:35)
[2021-07-14 08:40] VITALS: BP 130/66; PULSE 94; TEMP 97.8
[2021-07-14] MEDS: HEPARIN NA (PORCINE) 5,000 UNITS/ML 1ML VIAL SQ SCH (09:39)
[2021-07-14] MEDS: TRINTELLIX PO SCH (09:39)
[2021-07-14] MEDS: predniSONE 20 MG TABLET (UD) PO SCH (09:39)
[2021-07-14] MEDS: BUDESONIDE/FORMETEROL FUMARATE 160/4.5 mcg INHALER IH SCH (09:39)
[2021-07-14] MEDS: NICOTINE 21 MG/24 HOURS TOPICAL PATCH TD SCH (09:39)
== END 2021-07-14 11:43 | disposition home health service (06) | DRG 190 ==
LOC: JER 08:59 → JERBED 10:03 → J6S 17:57 → OBSVTOIN 07-13 10:46
PROVIDERS: ADMIT Family Medicine; ATTEND Family Medicine
DX: J44.1 Chronic obstructive pulmonary disease with (acute) exacerbation (principal); E43 Unspecified severe protein-calorie malnutrition; C78.00 Secondary malignant neoplasm of unspecified lung; C79.31 Secondary malignant neoplasm of brain; N39.0 Urinary tract infection, site not specified; Z68.1 Body mass index [BMI] 19.9 or less, adult; I10 Essential (primary) hypertension; E03.9 Hypothyroidism, unspecified; C50.919 Malignant neoplasm of unspecified site of unspecified female breast; E11.9 Type 2 diabetes mellitus without complications; E78.5 Hyperlipidemia, unspecified; F17.210 Nicotine dependence, cigarettes, uncomplicated; R62.7 Adult failure to thrive; F41.8 Other specified anxiety disorders
CPT/HCPCS: 36415; 71045-TC-FY; 80053; 81003; 82272; 83036; 83605; 83690; 83735; 84439; 84443; 84481; 84484; 85025; 85610; 85730; 86850; 86900; 86901; 87086; 93005; 93010; 94640; 94761; 97116-GP; 97161-GP; 99285-25; C9803-CS; G0378; J1644; U0003; U0005

== ENCOUNTER 2021-08-24 11:21 | Day surgery (SDC) | payer OTHER, BC ==
[2021-08-24] MEDS ORDERED: FERRIC CARBOXYMALTOSE 750 MG in SODIUM CHLORIDE 250 ML IVPB ONE (12:15)
[2021-08-24 13:13] VITALS: BP 138/69; PULSE 85; TEMP 97.5
== END 2021-08-24 14:00 | disposition home or self-care (01) ==
LOC: FM/S 11:21 → FINFUSION 11:21 → FM/S 11:22 → FINFUSION 14:00
PROVIDERS: ATTEND Family Medicine
PROC: 3E033GC Introduction of Other Therapeutic Substance into Peripheral Vein, Percutaneous Approach (ICD-10-PCS; principal; 2021-08-24)
DX: D50.9 Iron deficiency anemia, unspecified (principal)
CPT/HCPCS: 96365; J1439

== ENCOUNTER 2021-08-29 20:22 | Inpatient (IN) | payer OTHER, BC ==
[2021-08-29 20:57] VITALS: BMI 16.5
[2021-08-29] MEDS ORDERED: methylPREDNISolone NA SUCC 40 MG/1 ML VIAL IVPUSH ONE (21:26)
[2021-08-29] MEDS ORDERED: methylPREDNISolone NA SUCC 40 MG/1 ML VIAL ONE (22:00)
[2021-08-29] MEDS ORDERED: ALBUTEROL SO4 2.5/IPRATROPIUM 0.5 INH SOL 3 ML VIAL.NEB. NEB ONE (22:00)
[2021-08-29] MEDS: ALBUTEROL SO4 2.5/IPRATROPIUM 0.5 INH SOL 3 ML VIAL.NEB. NEB SCH (22:14)
[2021-08-29 23:32] LABS: BASO % 0.4 % (0-2.0); EOS % 0.4 % (0-4.5); HEMATOCRIT 36.1 % (32.4-45.2); HEMOGLOBIN 11.6 GM/dL (10.7-15.3); LYMPH % 14.4 % (8-40); MCH 27.4 pg (25.7-33.7); MCHC 32.2 g/dl (32.0-36.0); MEAN CELL VOLUME 85.1 fl (80-96); MEAN PLT VOLUME 6.9 fl (7.5-11.1); MONO % 3.8 % (3.8-10.2); PLATELET COUNT 522 10^3/uL (134-434); RBC 4.24 M/mm3 (3.60-5.2); RDW 17.6 % (11.6-15.6); WHITE BLOOD COUNT 11.9 K/mm3 (4.0-10.0)
[2021-08-29 23:39] LABS: INR 1.19 (0.83-1.09); PROTHROMBIN TIME (PATIENT) 13.7 SEC (9.7-13.0)
[2021-08-29 23:42] LABS: ACTIVATED PTT 41.4 SECONDS (25.2-36.5)
[2021-08-29 23:55] LABS: ALBUMIN 2.4 g/dl (3.4-5.0); BLOOD UREA NITROGEN 9.9 mg/dL (7-18)
[2021-08-29 23:58] LABS: CREATININE 0.7 mg/dL (0.55-1.3)
[2021-08-30] LABS: BILIRUBIN,TOTAL 0.3 mg/dL (0.2-1); TOT PROT 7.7 g/dl (6.4-8.2)
[2021-08-30 00:03] LABS: N-TERMINAL BNP 1290.5 pg/ml (5-125)
[2021-08-30] MEDS ORDERED: VANCOMYCIN 1 GM in D5W (PRE-DOCKED) 1,000 MG/250 ML IVPB ONE (00:46)
[2021-08-30] MEDS ORDERED: PIPERACILLIN/TAZOB 3.375 GM 3.375 GM in DEXTROSE 5%-WATER - 50 ML IVPB ONE (00:46)
[2021-08-30] MEDS ORDERED: PIPERACILLIN/TAZOB 3.375 GM 3.375 GM/50 ML BAG IVPB ONE (00:50)
[2021-08-30] MEDS ORDERED: VANCOMYCIN 1 GRAM (PRE-DOCKED) 1,000 MG/250 ML BAG IVPB ONE (02:03)
[2021-08-30] MEDS: ALBUTEROL SO4 2.5/IPRATROPIUM 0.5 INH SOL 3 ML VIAL.NEB. NEB SCH ×5 (02:31→20:02)
[2021-08-30] MEDS ORDERED: LORazepam 1 MG TABLET ONE (02:32)
[2021-08-30] MEDS: LORazepam 1 MG TABLET PO PRN ×3 (02:41→22:34)
[2021-08-30] MEDS ORDERED: LEVOTHYROXINE NA 50 MCG TABLET (FP) ONE (07:32)
[2021-08-30] MEDS ORDERED: ALBUTEROL SO4 2.5/IPRATROPIUM 0.5 INH SOL 3 ML VIAL.NEB. NEB ONE (07:39)
[2021-08-30] MEDS: LEVOTHYROXINE NA 100 MCG TABLET (FP) PO SCH (07:43)
[2021-08-30 07:47] LABS: HEMATOCRIT 30.7 % (32.4-45.2); HEMOGLOBIN 10.1 GM/dL (10.7-15.3); MCH 27.8 pg (25.7-33.7); MEAN CELL VOLUME 84.3 fl (80-96); MEAN PLT VOLUME 6.7 fl (7.5-11.1); PLATELET COUNT 473 10^3/uL (134-434); RBC 3.65 M/mm3 (3.60-5.2); RDW 17.5 % (11.6-15.6); WHITE BLOOD COUNT 10.1 K/mm3 (4.0-10.0)
[2021-08-30 08:07] LABS: CALCIUM 8.7 mg/dL (8.5-10.1)
[2021-08-30 08:08] LABS: BLOOD UREA NITROGEN 12.1 mg/dL (7-18)
[2021-08-30 08:11] LABS: CREATININE 0.8 mg/dL (0.55-1.3)
[2021-08-30 09:39] LABS: ANISOCYTOSIS 1+; MACROCYTOSIS 0
[2021-08-30] MEDS ORDERED: PATIENT'S OWN MEDICATION (NON-FORMULARY) (Vortioxetine Hydrobromide [Trintellix] 20 MG Tab PO SCH (10:00)
[2021-08-30] MEDS: methylPREDNISolone NA SUCC 40 MG/1 ML VIAL IVPUSH SCH ×2 (11:14→17:40)
[2021-08-30] MEDS: NICOTINE 21 MG/24 HOURS TOPICAL PATCH TD SCH (11:15)
[2021-08-30] MEDS: amLODIPine BESYLATE 5 MG TABLET (FP) PO SCH (11:15)
[2021-08-30] MEDS: AZITHROMYCIN IVPB 500 MG/250 ML BAG IVPB SCH (11:23)
[2021-08-30] MEDS ORDERED: LORazepam 1 MG TABLET PO PRN (12:43)
[2021-08-30] MEDS: BUDESONIDE/FORMETEROL FUMARATE 160/4.5 mcg INHALER IH SCH ×2 (13:02→22:34)
[2021-08-30] MEDS: AMINO ACIDS/PROTEIN HYDROLYS 30 ML LIQUID.PKT PO SCH (17:40)
[2021-08-30] MEDS: MONTELUKAST NA 10 MG TABLET PO SCH (22:34)
[2021-08-31] MEDS: methylPREDNISolone NA SUCC 40 MG/1 ML VIAL IVPUSH SCH ×3 (01:06→17:55)
[2021-08-31] MEDS: LORazepam 1 MG TABLET PO PRN ×4 (06:15→22:15)
[2021-08-31] MEDS: LEVOTHYROXINE NA 100 MCG TABLET (FP) PO SCH (06:15)
[2021-08-31] MEDS: ALBUTEROL SO4 2.5/IPRATROPIUM 0.5 INH SOL 3 ML VIAL.NEB. NEB SCH ×4 (07:59→20:29)
[2021-08-31] MEDS: AMINO ACIDS/PROTEIN HYDROLYS 30 ML LIQUID.PKT PO SCH ×2 (08:15→17:55)
[2021-08-31] MEDS: AZITHROMYCIN IVPB 500 MG/250 ML BAG IVPB SCH (10:18)
[2021-08-31] MEDS: NICOTINE 21 MG/24 HOURS TOPICAL PATCH TD SCH (10:19)
[2021-08-31] MEDS: BUDESONIDE/FORMETEROL FUMARATE 160/4.5 mcg INHALER IH SCH ×2 (10:19→22:16)
[2021-08-31] MEDS: amLODIPine BESYLATE 5 MG TABLET (FP) PO SCH (10:19)
[2021-08-31] MEDS: MONTELUKAST NA 10 MG TABLET PO SCH (22:15)
[2021-09-01] MEDS: methylPREDNISolone NA SUCC 40 MG/1 ML VIAL IVPUSH SCH ×2 (01:39→10:07)
[2021-09-01] MEDS: LORazepam 1 MG TABLET PO PRN ×3 (06:30→21:21)
[2021-09-01] MEDS: LEVOTHYROXINE NA 100 MCG TABLET (FP) PO SCH (06:30)
[2021-09-01] MEDS: ALBUTEROL SO4 2.5/IPRATROPIUM 0.5 INH SOL 3 ML VIAL.NEB. NEB SCH ×4 (08:00→20:08)
[2021-09-01] MEDS: AMINO ACIDS/PROTEIN HYDROLYS 30 ML LIQUID.PKT PO SCH ×2 (10:06→17:21)
[2021-09-01] MEDS: NICOTINE 21 MG/24 HOURS TOPICAL PATCH TD SCH (10:07)
[2021-09-01] MEDS: BUDESONIDE/FORMETEROL FUMARATE 160/4.5 mcg INHALER IH SCH ×2 (10:07→21:22)
[2021-09-01] MEDS: AZITHROMYCIN IVPB 500 MG/250 ML BAG IVPB SCH (10:07)
[2021-09-01] MEDS: amLODIPine BESYLATE 5 MG TABLET (FP) PO SCH (10:07)
[2021-09-01] MEDS: MONTELUKAST NA 10 MG TABLET PO SCH (21:21)
[2021-09-02] MEDS: LEVOTHYROXINE NA 100 MCG TABLET (FP) PO SCH (06:13)
[2021-09-02] MEDS: LORazepam 1 MG TABLET PO PRN ×3 (06:13→20:37)
[2021-09-02] MEDS: ALBUTEROL SO4 2.5/IPRATROPIUM 0.5 INH SOL 3 ML VIAL.NEB. NEB SCH ×4 (07:53→20:46)
[2021-09-02] MEDS: AMINO ACIDS/PROTEIN HYDROLYS 30 ML LIQUID.PKT PO SCH ×2 (08:36→16:34)
[2021-09-02] MEDS: predniSONE 20 MG TABLET (UD) PO SCH (09:01)
[2021-09-02] MEDS: amLODIPine BESYLATE 5 MG TABLET (FP) PO SCH (09:02)
[2021-09-02] MEDS: NICOTINE 21 MG/24 HOURS TOPICAL PATCH TD SCH (09:02)
[2021-09-02] MEDS: BUDESONIDE/FORMETEROL FUMARATE 160/4.5 mcg INHALER IH SCH ×2 (09:02→22:21)
[2021-09-02] MEDS: MONTELUKAST NA 10 MG TABLET PO SCH (22:20)
[2021-09-03] MEDS: LEVOTHYROXINE NA 100 MCG TABLET (FP) PO SCH (06:06)
[2021-09-03] MEDS: ALBUTEROL SO4 2.5/IPRATROPIUM 0.5 INH SOL 3 ML VIAL.NEB. NEB SCH ×3 (07:37→15:50)
[2021-09-03] MEDS: predniSONE 20 MG TABLET (UD) PO SCH (09:32)
[2021-09-03] MEDS: NICOTINE 21 MG/24 HOURS TOPICAL PATCH TD SCH (09:32)
[2021-09-03] MEDS: AMINO ACIDS/PROTEIN HYDROLYS 30 ML LIQUID.PKT PO SCH (09:32)
[2021-09-03] MEDS: amLODIPine BESYLATE 5 MG TABLET (FP) PO SCH (09:32)
[2021-09-03] MEDS: BUDESONIDE/FORMETEROL FUMARATE 160/4.5 mcg INHALER IH SCH (09:32)
[2021-09-03] MEDS: LORazepam 1 MG TABLET PO PRN (10:43)
[2021-09-03 14:11] VITALS: BP 128/67; PULSE 92; TEMP 98.2
== END 2021-09-03 16:01 | disposition home or self-care (01) | DRG 190 ==
LOC: JER 20:22 → JERBED 21:21 → J5S 08-30 09:40 → OBSVTOIN 08-31 15:11
PROVIDERS: ADMIT Internal Medicine; ATTEND Family Medicine
DX: J44.1 Chronic obstructive pulmonary disease with (acute) exacerbation (principal); E43 Unspecified severe protein-calorie malnutrition; C78.00 Secondary malignant neoplasm of unspecified lung; C79.31 Secondary malignant neoplasm of brain; R64 Cachexia; Z68.1 Body mass index [BMI] 19.9 or less, adult; C50.919 Malignant neoplasm of unspecified site of unspecified female breast; E11.9 Type 2 diabetes mellitus without complications; I10 Essential (primary) hypertension; E78.5 Hyperlipidemia, unspecified; F41.8 Other specified anxiety disorders; R62.7 Adult failure to thrive; D64.9 Anemia, unspecified
CPT/HCPCS: 0241U-QW; 36415; 71045-TC-FY; 71250-TC; 80048; 80053; 82962; 83880; 84439; 84443; 84484; 85025; 85027; 85610; 85730; 87040; 87070; 87086; 87205; 93005; 93010; 94640; 99285-25; G0378

== ENCOUNTER 2021-10-17 09:55 | Inpatient (IN) | payer OTHER, BC ==
[2021-10-17 11:02] LABS: BASO % 0.6 % (0-2.0); EOS % 0.4 % (0-4.5); HEMATOCRIT 28.3 % (32.4-45.2); HEMOGLOBIN 9.2 GM/dL (10.7-15.3); LYMPH % 10.6 % (8-40); MCHC 32.4 g/dl (32.0-36.0); MEAN CELL VOLUME 86.3 fl (80-96); MEAN PLT VOLUME 7.4 fl (7.5-11.1); MONO % 3.5 % (3.8-10.2); NEUT % 84.9 % (42.8-82.8); PLATELET COUNT 373 10^3/uL (134-434); RBC 3.28 M/mm3 (3.60-5.2); RDW 17.7 % (11.6-15.6); WHITE BLOOD COUNT 9.4 K/mm3 (4.0-10.0)
[2021-10-17 11:08] LABS: ACTIVATED PTT 35.4 SECONDS (25.2-36.5); INR 1.18 (0.83-1.09); PROTHROMBIN TIME (PATIENT) 13.6 SEC (9.7-13.0)
[2021-10-17] MEDS ORDERED: predniSONE 20 MG TABLET (UD) PO ONE (11:14)
[2021-10-17] MEDS ORDERED: predniSONE 20 MG TABLET (UD) ONE (11:19)
[2021-10-17 11:20] LABS: CALCIUM 8.3 mg/dL (8.5-10.1)
[2021-10-17 11:21] LABS: ALBUMIN 1.8 g/dl (3.4-5.0); BLOOD UREA NITROGEN 10.7 mg/dL (7-18)
[2021-10-17 11:24] LABS: CREATININE 0.6 mg/dL (0.55-1.3)
[2021-10-17 11:25] LABS: BILIRUBIN,TOTAL 0.4 mg/dL (0.2-1); TOT PROT 6.2 g/dl (6.4-8.2)
[2021-10-17] MEDS: ALBUTEROL SO4 2.5/IPRATROPIUM 0.5 INH SOL 3 ML VIAL.NEB. NEB SCH ×3 (11:25→11:49)
[2021-10-17 11:30] LABS: N-TERMINAL BNP 1594.2 pg/ml (5-125)
[2021-10-17] MEDS ORDERED: AZITHROMYCIN 250 MG TABLET PO ONE (13:42)
[2021-10-17] MEDS ORDERED: AZITHROMYCIN 250 MG TABLET ONE (13:56)
[2021-10-17] MEDS ORDERED: ACETAMINOPHEN 325 MG TABLET (FP) PO PRN (18:13)
[2021-10-17] MEDS ORDERED: ALBUTEROL SO4 0.083% IH SOL 2.5 MG/3 ML VIAL.NEB. NEB PRN (18:13)
[2021-10-17] MEDS ORDERED: CEFTRIAXONE 1 GM in DEXTROSE 5%-WATER - 50 ML IVPB ONE (18:13)
[2021-10-17] MEDS ORDERED: HEPARIN NA (PORCINE) 5,000 UNITS/ML 1ML VIAL IVPUSH PRN ×2 (18:17)
[2021-10-17 19:06] LABS: EPI CELLS 11 /uL (0-25.1); HYALINE CASTS 4 /uL (0-3.1); URINE APPEARANCE CLEAR; URINE BACTERIA 19 /uL (0-1359); URINE BILIRUBIN NEGATIVE (NEGATIVE); URINE COLOR YELLOW; URINE GLUCOSE (UA) NEGATIVE (NEGATIVE); URINE KETONE NEGATIVE (NEGATIVE); URINE LEUK ESTERASE NEGATIVE (NEGATIVE); URINE NITRITE NEGATIVE (NEGATIVE); URINE PROTEIN 1+ (NEGATIVE); URINE RBC 7 /uL (0-23.9); URINE WBC 8 /uL (0-25.8)
[2021-10-17] MEDS ORDERED: PANTOPRAZOLE 40 MG TABLET PO ONE (19:10)
[2021-10-17] MEDS ORDERED: methylPREDNISolone NA SUCC 40 MG/1 ML VIAL ONE (19:11)
[2021-10-17] MEDS ORDERED: CEFTRIAXONE 1 GM/50 ML BAG ONE (19:11)
[2021-10-17] MEDS: methylPREDNISolone NA SUCC 40 MG/1 ML VIAL IVPUSH SCH (19:23)
[2021-10-17] MEDS: PANTOPRAZOLE 40 MG TABLET PO SCH (19:23)
[2021-10-17] MEDS ORDERED: NICOTINE 21 MG/24 HOURS TOPICAL PATCH ONE (19:27)
[2021-10-17] MEDS: NICOTINE 21 MG/24 HOURS TOPICAL PATCH TD SCH (20:09)
[2021-10-17] MEDS: HEPARIN SOD,PORK IN 0.45% NACL 25,000 UNIT/500 ML INFUS.BAG IVPB SCH (20:12)
[2021-10-17] MEDS ORDERED: HEPARIN NA (PORCINE) 5,000 UNITS/ML 1ML VIAL SQ SCH (22:00)
[2021-10-17] MEDS ORDERED: LORazepam 1 MG TABLET ONE (23:06)
[2021-10-17] MEDS: LORazepam 0.5 MG TABLET PO PRN (23:09)
[2021-10-18] MEDS ORDERED: methylPREDNISolone NA SUCC 40 MG/1 ML VIAL ONE (02:03)
[2021-10-18] MEDS: methylPREDNISolone NA SUCC 40 MG/1 ML VIAL IVPUSH SCH ×3 (02:14→17:05)
[2021-10-18] MEDS ORDERED: HEPARIN NA (PORCINE) 5,000 UNITS/ML 1ML VIAL ONE (02:54)
[2021-10-18] MEDS: LEVOTHYROXINE NA 100 MCG TABLET (FP) PO SCH (08:23)
[2021-10-18] MEDS: NICOTINE 21 MG/24 HOURS TOPICAL PATCH TD SCH ×2 (09:59→10:04)
[2021-10-18] MEDS: amLODIPine BESYLATE 5 MG TABLET (FP) PO SCH (09:59)
[2021-10-18] MEDS: PANTOPRAZOLE 40 MG TABLET PO SCH (09:59)
[2021-10-18] MEDS ORDERED: cefTRIAXone SODIUM 1 GM VIAL ONE (10:54)
[2021-10-18] MEDS ORDERED: DEXTROSE 5%-WATER - 50 ML IVPB ONE (10:54)
[2021-10-18] MEDS: CEFTRIAXONE 1 GM in DEXTROSE 5%-WATER - 50 ML IVPB SCH (11:16)
[2021-10-18] MEDS: ALBUTEROL SO4 2.5/IPRATROPIUM 0.5 INH SOL 3 ML VIAL.NEB. NEB SCH ×3 (12:00→19:43)
[2021-10-18 12:46] LABS: CHLORIDE 104 mmol/L (98-107); SODIUM 138 mmol/L (136-145)
[2021-10-18 12:48] LABS: ANION GAP 9 MMOL/L (8-16); BLOOD UREA NITROGEN 17.5 mg/dL (7-18); CALCIUM 8.6 mg/dL (8.5-10.1); CO2 24 mmol/L (21-32); GLUCOSE,RANDOM 153 mg/dL (74-106)
[2021-10-18 12:51] LABS: CREATININE 0.7 mg/dL (0.55-1.3)
[2021-10-18 12:52] LABS: SGOT/AST 22 U/L (15-37); SGPT/ALT 18 U/L (13-61)
[2021-10-18 12:53] LABS: BILIRUBIN,TOTAL < 0.1 mg/dL (0.2-1)
[2021-10-18 12:54] LABS: ALK PHOS 101 U/L (45-117)
[2021-10-18] MEDS: AZITHROMYCIN 250 MG TABLET PO SCH (14:10)
[2021-10-18] MEDS: HEPARIN SOD,PORK IN 0.45% NACL 25,000 UNIT/500 ML INFUS.BAG IVPB SCH (21:00)
[2021-10-18] MEDS: busPIRone HCL 10 MG TABLET (FP) PO SCH (21:59)
[2021-10-18] MEDS: LORazepam 0.5 MG TABLET PO PRN (23:06)
[2021-10-19] MEDS: methylPREDNISolone NA SUCC 40 MG/1 ML VIAL IVPUSH SCH ×3 (02:40→18:22)
[2021-10-19] MEDS: HEPARIN SOD,PORK IN 0.45% NACL 25,000 UNIT/500 ML INFUS.BAG IVPB SCH (06:32)
[2021-10-19] MEDS: LEVOTHYROXINE NA 100 MCG TABLET (FP) PO SCH (06:32)
[2021-10-19] MEDS: ALBUTEROL SO4 2.5/IPRATROPIUM 0.5 INH SOL 3 ML VIAL.NEB. NEB SCH ×4 (08:15→20:19)
[2021-10-19] MEDS: AZITHROMYCIN 250 MG TABLET PO SCH (09:29)
[2021-10-19] MEDS: ENOXAPARIN NA (PORCINE) 40 MG/0.4 ML DISP.SYRIN SQ SCH ×2 (09:30→21:21)
[2021-10-19] MEDS: amLODIPine BESYLATE 5 MG TABLET (FP) PO SCH (09:30)
[2021-10-19] MEDS: BUDESONIDE/FORMETEROL FUMARATE 160/4.5 mcg INHALER IH SCH ×2 (09:30→21:21)
[2021-10-19] MEDS: PANTOPRAZOLE 40 MG TABLET PO SCH (09:30)
[2021-10-19] MEDS ORDERED: cefTRIAXone SODIUM 1 GM VIAL ONE (09:31)
[2021-10-19] MEDS ORDERED: DEXTROSE 5%-WATER - 50 ML IVPB ONE (09:31)
[2021-10-19] MEDS: CEFTRIAXONE 1 GM in DEXTROSE 5%-WATER - 50 ML IVPB SCH (09:32)
[2021-10-19] MEDS: busPIRone HCL 10 MG TABLET (FP) PO SCH ×2 (09:36→21:22)
[2021-10-19] MEDS: NICOTINE 21 MG/24 HOURS TOPICAL PATCH TD SCH (09:36)
[2021-10-19] MEDS ORDERED: PATIENT'S OWN MEDICATION (NON-FORMULARY) (Vortioxetine Hydrobromide [Trintellix] 20 MG Tab PO SCH (10:00)
[2021-10-19 11:59] LABS: HEMATOCRIT 28.7 % (32.4-45.2); HEMOGLOBIN 9.2 GM/dL (10.7-15.3); MCH 27.6 pg (25.7-33.7); MCHC 32.1 g/dl (32.0-36.0); MEAN PLT VOLUME 6.7 fl (7.5-11.1); PLATELET COUNT 414 10^3/uL (134-434); RBC 3.34 M/mm3 (3.60-5.2); RDW 17.4 % (11.6-15.6)
[2021-10-19 12:33] LABS: ANISOCYTOSIS 0; HELMET CELLS 0; HOWELL-JOLLY BODIES 0; MACROCYTOSIS 0; OVALOCYTE 0; ROULEAU 0; SICKELED CELLS 0; TARGET CELLS 0; TEAR DROP CELLS 0; TOXIC GRANULATION 0
[2021-10-19 12:43] LABS: CALCIUM 8.7 mg/dL (8.5-10.1)
[2021-10-19 12:44] LABS: BLOOD UREA NITROGEN 23.4 mg/dL (7-18)
[2021-10-19 12:47] LABS: CREATININE 0.6 mg/dL (0.55-1.3)
[2021-10-19 12:49] LABS: TOT PROT 6.5 g/dl (6.4-8.2)
[2021-10-19 12:50] LABS: BILIRUBIN,TOTAL 0.7 mg/dL (0.2-1)
[2021-10-19 14:53] VITALS: BMI 16.6
[2021-10-19] MEDS: LORazepam 0.5 MG TABLET PO PRN (21:21)
[2021-10-19] MEDS: MONTELUKAST NA 10 MG TABLET PO SCH (21:21)
[2021-10-19] MEDS: QUEtiapine FUMARATE 25 MG TABLET PO SCH (21:22)
[2021-10-20] MEDS: methylPREDNISolone NA SUCC 40 MG/1 ML VIAL IVPUSH SCH ×3 (02:45→21:22)
[2021-10-20] MEDS: LEVOTHYROXINE NA 100 MCG TABLET (FP) PO SCH (06:07)
[2021-10-20] MEDS: ALBUTEROL SO4 2.5/IPRATROPIUM 0.5 INH SOL 3 ML VIAL.NEB. NEB SCH ×4 (08:41→21:14)
[2021-10-20] MEDS ORDERED: cefTRIAXone SODIUM 1 GM VIAL ONE (09:27)
[2021-10-20] MEDS ORDERED: DEXTROSE 5%-WATER - 50 ML IVPB ONE (09:27)
[2021-10-20] MEDS: ENOXAPARIN NA (PORCINE) 40 MG/0.4 ML DISP.SYRIN SQ SCH ×2 (10:44→21:21)
[2021-10-20] MEDS: CEFTRIAXONE 1 GM in DEXTROSE 5%-WATER - 50 ML IVPB SCH (10:45)
[2021-10-20] MEDS: PANTOPRAZOLE 40 MG TABLET PO SCH (10:45)
[2021-10-20] MEDS: NICOTINE 21 MG/24 HOURS TOPICAL PATCH TD SCH (10:45)
[2021-10-20] MEDS: busPIRone HCL 10 MG TABLET (FP) PO SCH ×2 (10:45→21:22)
[2021-10-20] MEDS: amLODIPine BESYLATE 5 MG TABLET (FP) PO SCH (10:45)
[2021-10-20 11:10] LABS: HEMATOCRIT 28.2 % (32.4-45.2); MCH 27.4 pg (25.7-33.7); MCHC 31.9 g/dl (32.0-36.0); MEAN CELL VOLUME 85.8 fl (80-96); MEAN PLT VOLUME 6.7 fl (7.5-11.1); PLATELET COUNT 358 10^3/uL (134-434); RBC 3.29 M/mm3 (3.60-5.2); RDW 17.6 % (11.6-15.6); WHITE BLOOD COUNT 12.5 K/mm3 (4.0-10.0)
[2021-10-20] MEDS: BUDESONIDE/FORMETEROL FUMARATE 160/4.5 mcg INHALER IH SCH ×2 (11:39→21:27)
[2021-10-20] MEDS: AZITHROMYCIN 250 MG TABLET PO SCH (13:11)
[2021-10-20] MEDS: QUEtiapine FUMARATE 25 MG TABLET PO SCH (21:21)
[2021-10-20] MEDS: LORazepam 0.5 MG TABLET PO PRN (21:21)
[2021-10-20] MEDS: MONTELUKAST NA 10 MG TABLET PO SCH (21:21)
[2021-10-21] MEDS: LEVOTHYROXINE NA 100 MCG TABLET (FP) PO SCH (06:18)
[2021-10-21] MEDS: ALBUTEROL SO4 2.5/IPRATROPIUM 0.5 INH SOL 3 ML VIAL.NEB. NEB SCH ×4 (07:44→20:40)
[2021-10-21] MEDS ORDERED: cefTRIAXone SODIUM 1 GM VIAL ONE (09:18)
[2021-10-21] MEDS ORDERED: DEXTROSE 5%-WATER - 50 ML IVPB ONE (09:18)
[2021-10-21] MEDS: methylPREDNISolone NA SUCC 40 MG/1 ML VIAL IVPUSH SCH ×2 (09:27→21:38)
[2021-10-21] MEDS: PANTOPRAZOLE 40 MG TABLET PO SCH (09:27)
[2021-10-21] MEDS: CEFTRIAXONE 1 GM in DEXTROSE 5%-WATER - 50 ML IVPB SCH (09:28)
[2021-10-21] MEDS: ENOXAPARIN NA (PORCINE) 40 MG/0.4 ML DISP.SYRIN SQ SCH ×2 (09:28→21:38)
[2021-10-21] MEDS: NICOTINE 21 MG/24 HOURS TOPICAL PATCH TD SCH (09:28)
[2021-10-21] MEDS: amLODIPine BESYLATE 5 MG TABLET (FP) PO SCH (09:28)
[2021-10-21] MEDS: BUDESONIDE/FORMETEROL FUMARATE 160/4.5 mcg INHALER IH SCH ×2 (09:29→21:39)
[2021-10-21 09:44] LABS: HEMATOCRIT 28.3 % (32.4-45.2); HEMOGLOBIN 9.2 GM/dL (10.7-15.3); MCH 27.9 pg (25.7-33.7); MCHC 32.3 g/dl (32.0-36.0); MEAN CELL VOLUME 86.2 fl (80-96); MEAN PLT VOLUME 6.9 fl (7.5-11.1); PLATELET COUNT 312 10^3/uL (134-434); RBC 3.28 M/mm3 (3.60-5.2); RDW 17.5 % (11.6-15.6); WHITE BLOOD COUNT 10.6 K/mm3 (4.0-10.0)
[2021-10-21] MEDS: AZITHROMYCIN 250 MG TABLET PO SCH (10:06)
[2021-10-21] MEDS: busPIRone HCL 10 MG TABLET (FP) PO SCH ×2 (10:06→21:44)
[2021-10-21] MEDS: LORazepam 0.5 MG TABLET PO PRN (20:00)
[2021-10-21] MEDS: MONTELUKAST NA 10 MG TABLET PO SCH (21:39)
[2021-10-21] MEDS: QUEtiapine FUMARATE 25 MG TABLET PO SCH (21:39)
[2021-10-22] MEDS: LEVOTHYROXINE NA 100 MCG TABLET (FP) PO SCH (05:59)
[2021-10-22] MEDS: ALBUTEROL SO4 2.5/IPRATROPIUM 0.5 INH SOL 3 ML VIAL.NEB. NEB SCH ×4 (08:55→20:15)
[2021-10-22] MEDS ORDERED: cefTRIAXone SODIUM 1 GM VIAL ONE (10:09)
[2021-10-22] MEDS ORDERED: DEXTROSE 5%-WATER - 50 ML IVPB ONE (10:10)
[2021-10-22] MEDS: PANTOPRAZOLE 40 MG TABLET PO SCH (10:26)
[2021-10-22] MEDS: methylPREDNISolone NA SUCC 40 MG/1 ML VIAL IVPUSH SCH ×2 (10:26→21:11)
[2021-10-22] MEDS: CEFTRIAXONE 1 GM in DEXTROSE 5%-WATER - 50 ML IVPB SCH (10:26)
[2021-10-22] MEDS: amLODIPine BESYLATE 5 MG TABLET (FP) PO SCH (10:26)
[2021-10-22] MEDS: AZITHROMYCIN 250 MG TABLET PO SCH (10:27)
[2021-10-22] MEDS: NICOTINE 21 MG/24 HOURS TOPICAL PATCH TD SCH (10:27)
[2021-10-22] MEDS: busPIRone HCL 10 MG TABLET (FP) PO SCH ×2 (10:27→21:09)
[2021-10-22] MEDS: ENOXAPARIN NA (PORCINE) 40 MG/0.4 ML DISP.SYRIN SQ SCH ×2 (10:27→21:10)
[2021-10-22] MEDS: BUDESONIDE/FORMETEROL FUMARATE 160/4.5 mcg INHALER IH SCH ×2 (10:28→21:18)
[2021-10-22 11:10] LABS: HEMATOCRIT 28.2 % (32.4-45.2); HEMOGLOBIN 8.9 GM/dL (10.7-15.3); MCH 27.5 pg (25.7-33.7); MCHC 31.5 g/dl (32.0-36.0); MEAN CELL VOLUME 87.1 fl (80-96); MEAN PLT VOLUME 7.2 fl (7.5-11.1); PLATELET COUNT 291 10^3/uL (134-434); RBC 3.24 M/mm3 (3.60-5.2); RDW 17.5 % (11.6-15.6); WHITE BLOOD COUNT 12.4 K/mm3 (4.0-10.0)
[2021-10-22] MEDS: AMINO ACIDS/PROTEIN HYDROLYS 30 ML LIQUID.PKT PO SCH (17:16)
[2021-10-22] MEDS: QUEtiapine FUMARATE 50 MG TABLET PO SCH (21:10)
[2021-10-22] MEDS: MONTELUKAST NA 10 MG TABLET PO SCH (21:11)
[2021-10-23] MEDS: LEVOTHYROXINE NA 100 MCG TABLET (FP) PO SCH (06:17)
[2021-10-23] MEDS: AMINO ACIDS/PROTEIN HYDROLYS 30 ML LIQUID.PKT PO SCH ×3 (08:51→17:07)
[2021-10-23] MEDS ORDERED: cefTRIAXone SODIUM 1 GM VIAL ONE (09:05)
[2021-10-23] MEDS ORDERED: DEXTROSE 5%-WATER - 50 ML IVPB ONE (09:05)
[2021-10-23] MEDS: ALBUTEROL SO4 2.5/IPRATROPIUM 0.5 INH SOL 3 ML VIAL.NEB. NEB SCH ×4 (09:13→20:10)
[2021-10-23] MEDS: amLODIPine BESYLATE 5 MG TABLET (FP) PO SCH (09:24)
[2021-10-23] MEDS: AZITHROMYCIN 250 MG TABLET PO SCH (09:24)
[2021-10-23] MEDS: BUDESONIDE/FORMETEROL FUMARATE 160/4.5 mcg INHALER IH SCH ×2 (09:24→22:00)
[2021-10-23] MEDS: busPIRone HCL 10 MG TABLET (FP) PO SCH ×2 (09:24→21:59)
[2021-10-23] MEDS: CEFTRIAXONE 1 GM in DEXTROSE 5%-WATER - 50 ML IVPB SCH (09:24)
[2021-10-23] MEDS: PANTOPRAZOLE 40 MG TABLET PO SCH (09:24)
[2021-10-23] MEDS: NICOTINE 21 MG/24 HOURS TOPICAL PATCH TD SCH (09:24)
[2021-10-23] MEDS: ENOXAPARIN NA (PORCINE) 40 MG/0.4 ML DISP.SYRIN SQ SCH ×2 (09:24→21:58)
[2021-10-23] MEDS: methylPREDNISolone NA SUCC 40 MG/1 ML VIAL IVPUSH SCH ×2 (09:25→21:59)
[2021-10-23 11:03] LABS: HEMATOCRIT 30.6 % (32.4-45.2); HEMOGLOBIN 9.8 GM/dL (10.7-15.3); MCH 27.5 pg (25.7-33.7); MCHC 31.9 g/dl (32.0-36.0); MEAN CELL VOLUME 86.1 fl (80-96); MEAN PLT VOLUME 7.2 fl (7.5-11.1); PLATELET COUNT 322 10^3/uL (134-434); RBC 3.56 M/mm3 (3.60-5.2); RDW 17.2 % (11.6-15.6); WHITE BLOOD COUNT 10.6 K/mm3 (4.0-10.0)
[2021-10-23] MEDS ORDERED: LORazepam 2 MG/ML SDV VIAL IVPUSH ONE (17:45)
[2021-10-23] MEDS: QUEtiapine FUMARATE 50 MG TABLET PO SCH (21:58)
[2021-10-23] MEDS: MONTELUKAST NA 10 MG TABLET PO SCH (21:59)
[2021-10-24] MEDS: LEVOTHYROXINE NA 100 MCG TABLET (FP) PO SCH (06:38)
[2021-10-24] MEDS: ALBUTEROL SO4 2.5/IPRATROPIUM 0.5 INH SOL 3 ML VIAL.NEB. NEB SCH ×4 (07:28→20:05)
[2021-10-24] MEDS ORDERED: cefTRIAXone SODIUM 1 GM VIAL ONE (09:22)
[2021-10-24] MEDS: methylPREDNISolone NA SUCC 40 MG/1 ML VIAL IVPUSH SCH (09:34)
[2021-10-24] MEDS: ENOXAPARIN NA (PORCINE) 40 MG/0.4 ML DISP.SYRIN SQ SCH (09:34)
[2021-10-24] MEDS: CEFTRIAXONE 1 GM in DEXTROSE 5%-WATER - 50 ML IVPB SCH (09:34)
[2021-10-24] MEDS: AMINO ACIDS/PROTEIN HYDROLYS 30 ML LIQUID.PKT PO SCH ×3 (09:34→17:36)
[2021-10-24] MEDS: NICOTINE 21 MG/24 HOURS TOPICAL PATCH TD SCH (09:35)
[2021-10-24] MEDS: amLODIPine BESYLATE 5 MG TABLET (FP) PO SCH (09:35)
[2021-10-24] MEDS: BUDESONIDE/FORMETEROL FUMARATE 160/4.5 mcg INHALER IH SCH ×2 (09:35→21:19)
[2021-10-24] MEDS: PANTOPRAZOLE 40 MG TABLET PO SCH (09:35)
[2021-10-24] MEDS: busPIRone HCL 10 MG TABLET (FP) PO SCH ×2 (09:35→21:17)
[2021-10-24] MEDS: QUEtiapine FUMARATE 50 MG TABLET PO SCH (21:17)
[2021-10-24] MEDS: APIXABAN 5 MG TABLET PO SCH (21:17)
[2021-10-24] MEDS: MONTELUKAST NA 10 MG TABLET PO SCH (21:17)
[2021-10-25] MEDS ORDERED: MELATONIN 5 MG TABLETS PO ONE (01:05)
[2021-10-25] MEDS: LEVOTHYROXINE NA 100 MCG TABLET (FP) PO SCH (06:31)
[2021-10-25] MEDS: ALBUTEROL SO4 2.5/IPRATROPIUM 0.5 INH SOL 3 ML VIAL.NEB. NEB SCH ×3 (07:16→15:18)
[2021-10-25] MEDS ORDERED: cefTRIAXone SODIUM 1 GM VIAL ONE (09:10)
[2021-10-25] MEDS ORDERED: DEXTROSE 5%-WATER - 50 ML IVPB ONE (09:10)
[2021-10-25] MEDS: NICOTINE 21 MG/24 HOURS TOPICAL PATCH TD SCH (09:17)
[2021-10-25] MEDS: APIXABAN 5 MG TABLET PO SCH (09:20)
[2021-10-25] MEDS: PANTOPRAZOLE 40 MG TABLET PO SCH (09:20)
[2021-10-25] MEDS: busPIRone HCL 10 MG TABLET (FP) PO SCH (09:20)
[2021-10-25] MEDS: amLODIPine BESYLATE 5 MG TABLET (FP) PO SCH (09:20)
[2021-10-25] MEDS: CEFTRIAXONE 1 GM in DEXTROSE 5%-WATER - 50 ML IVPB SCH (09:21)
[2021-10-25] MEDS ORDERED: predniSONE 20 MG TABLET (UD) PO SCH (10:00)
[2021-10-25] MEDS: BUDESONIDE/FORMETEROL FUMARATE 160/4.5 mcg INHALER IH SCH (10:30)
[2021-10-25] MEDS: AMINO ACIDS/PROTEIN HYDROLYS 30 ML LIQUID.PKT PO SCH ×2 (11:48)
[2021-10-25 14:10] VITALS: BP 125/63; PULSE 86; TEMP 99.3
== END 2021-10-25 18:34 | DRG 175 ==
LOC: JER 09:55 → JERBED 13:44 → J6S 10-18 07:51
PROVIDERS: ADMIT Family Medicine; ATTEND Family Medicine
DX: I26.99 Other pulmonary embolism without acute cor pulmonale (principal); E43 Unspecified severe protein-calorie malnutrition; J18.9 Pneumonia, unspecified organism; J44.1 Chronic obstructive pulmonary disease with (acute) exacerbation; R64 Cachexia; Z68.1 Body mass index [BMI] 19.9 or less, adult; C78.00 Secondary malignant neoplasm of unspecified lung; C79.31 Secondary malignant neoplasm of brain; I10 Essential (primary) hypertension; E03.9 Hypothyroidism, unspecified; E11.9 Type 2 diabetes mellitus without complications; E78.5 Hyperlipidemia, unspecified; C50.919 Malignant neoplasm of unspecified site of unspecified female breast; R62.7 Adult failure to thrive; F41.8 Other specified anxiety disorders
CPT/HCPCS: 0241U-QW; 36415; 70552-TC; 71045-TC-FY; 71275-TC; 80053; 81003; 83880; 84484; 85025; 85027; 85610; 85730; 86480; 86850; 86900; 86901; 87086; 87305; 87449; 93005; 93010; 94640; 97116-GP; 97162-GP; 99285-25; A9579; C1887; C9803-CS; J1644; Q9967; U0003; U0005

== ENCOUNTER 2021-11-04 18:27 | Inpatient (IN) | payer OTHER, BC ==
[2021-11-04] MEDS ORDERED: SODIUM CHLORIDE 0.9% 500 ML INFUS.BAG IV ONE (20:22)
[2021-11-04 20:23] LABS: VENOUS BASE EXCESS 2.6 mmol/L (-2-2); VENOUS O2 SATURATION 97.6 % (70-80); VENOUS PCO2 39.6 mmHg (38-52); VENOUS PH 7.448 (7.310-7.410)
[2021-11-04 20:36] LABS: BASO % 0.6 % (0-2.0); EOS % 0.1 % (0-4.5); HEMATOCRIT 31.2 % (32.4-45.2); HEMOGLOBIN 10.2 GM/dL (10.7-15.3); LYMPH % 12.2 % (8-40); MCH 28.2 pg (25.7-33.7); MCHC 32.6 g/dl (32.0-36.0); MEAN CELL VOLUME 86.3 fl (80-96); MEAN PLT VOLUME 6.8 fl (7.5-11.1); NEUT % 84.1 % (42.8-82.8); PLATELET COUNT 305 10^3/uL (134-434); RBC 3.62 M/mm3 (3.60-5.2); RDW 18.2 % (11.6-15.6); WHITE BLOOD COUNT 19.2 K/mm3 (4.0-10.0)
[2021-11-04 20:54] LABS: N-TERMINAL BNP 2921.9 pg/ml (5-125)
[2021-11-04 21:12] LABS: CALCIUM 8.5 mg/dL (8.5-10.1)
[2021-11-04 21:13] LABS: BLOOD UREA NITROGEN 30.1 mg/dL (7-18)
[2021-11-04 21:16] LABS: CREATININE 0.7 mg/dL (0.55-1.3)
[2021-11-04 21:18] LABS: BILIRUBIN,TOTAL 0.3 mg/dL (0.2-1); TOT PROT 6.6 g/dl (6.4-8.2)
[2021-11-04] MEDS ORDERED: VANCOMYCIN 1 GM in D5W (PRE-DOCKED) 1,000 MG/250 ML IVPB ONE (21:57)
[2021-11-04] MEDS ORDERED: PIPERACILLIN/TAZOB 4.5 GM 4.5 GM in DEXTROSE 5%-WATER 100 ML IVPB ONE (21:57)
[2021-11-04] MEDS ORDERED: PIPERACILLIN/TAZOB 4.5 GM 4.5 GM/100 ML BAG IVPB ONE (22:20)
[2021-11-04] MEDS ORDERED: VANCOMYCIN/WATER FOR INJ (PEG) 1,000 MG/200 ML BAG IVPB ONE (22:21)
[2021-11-04] MEDS ORDERED: ACETAMINOPHEN 1000 MG/100 ML BAG IVPB ONE (22:36)
[2021-11-04] MEDS ORDERED: ACETAMINOPHEN INJECTION 100 ML IVPB ONE (22:37)
[2021-11-05] MEDS ORDERED: ALBUTEROL SO4 2.5/IPRATROPIUM 0.5 INH SOL 3 ML VIAL.NEB. NEB PRN (01:22)
[2021-11-05] MEDS ORDERED: methylPREDNISolone NA SUCC 125 MG/2 ML VIAL IVPUSH ONE (01:35)
[2021-11-05] MEDS ORDERED: methylPREDNISolone NA SUCC 125 MG/2 ML VIAL ONE (01:40)
[2021-11-05] MEDS: PIPERACILLIN/TAZOB 4.5 GM 4.5 GM in DEXTROSE 5%-WATER 100 ML IVPB SCH ×4 (03:28→12:23)
[2021-11-05] MEDS: LEVOTHYROXINE NA 125 MCG TABLET (FP) PO SCH (07:31)
[2021-11-05 09:10] LABS: HEMATOCRIT 29.3 % (32.4-45.2); HEMOGLOBIN 9.5 GM/dL (10.7-15.3); MCH 28.5 pg (25.7-33.7); MCHC 32.5 g/dl (32.0-36.0); MEAN CELL VOLUME 87.6 fl (80-96); MEAN PLT VOLUME 6.9 fl (7.5-11.1); PLATELET COUNT 251 10^3/uL (134-434); RBC 3.35 M/mm3 (3.60-5.2); WHITE BLOOD COUNT 14.5 K/mm3 (4.0-10.0)
[2021-11-05] MEDS ORDERED: busPIRone HCL 5 MG TABLET ONE (09:16)
[2021-11-05] MEDS ORDERED: NICOTINE 21 MG/24 HOURS TOPICAL PATCH ONE (09:17)
[2021-11-05] MEDS ORDERED: PIPERACILLIN/TAZOB 4.5 GM 4.5 GM/100 ML BAG IVPB ONE (09:17)
[2021-11-05] MEDS ORDERED: APIXABAN 5 MG TABLET ONE (09:17)
[2021-11-05] MEDS ORDERED: FUROSEMIDE 40 MG/4 ML INJECTABLE VIAL ONE (09:18)
[2021-11-05] MEDS ORDERED: methylPREDNISolone NA SUCC 40 MG/1 ML VIAL ONE (09:18)
[2021-11-05 09:27] LABS: CALCIUM 8.6 mg/dL (8.5-10.1)
[2021-11-05 09:28] LABS: BLOOD UREA NITROGEN 30.2 mg/dL (7-18)
[2021-11-05 09:31] LABS: CREATININE 0.8 mg/dL (0.55-1.3)
[2021-11-05] MEDS: APIXABAN 5 MG TABLET PO SCH ×2 (09:32→21:10)
[2021-11-05] MEDS: busPIRone HCL 10 MG TABLET (FP) PO SCH ×2 (09:32→21:10)
[2021-11-05] MEDS: methylPREDNISolone NA SUCC 40 MG/1 ML VIAL IVPUSH SCH ×2 (09:32→17:42)
[2021-11-05] MEDS: FUROSEMIDE 40 MG/4 ML INJECTABLE VIAL IVPUSH SCH (09:32)
[2021-11-05] MEDS: NICOTINE 21 MG/24 HOURS TOPICAL PATCH TD SCH (09:32)
[2021-11-05 09:33] LABS: BILIRUBIN,TOTAL 0.4 mg/dL (0.2-1); TOT PROT 6.3 g/dl (6.4-8.2)
[2021-11-05 09:56] LABS: ANISOCYTOSIS 0; HELMET CELLS 0; HOWELL-JOLLY BODIES 0; MACROCYTOSIS 0; OVALOCYTE 0; ROULEAU 0; SICKELED CELLS 0; TARGET CELLS 0; TEAR DROP CELLS 0; TOXIC GRANULATION 0
[2021-11-05 13:06] VITALS: BMI 16.6
[2021-11-05] MEDS ORDERED: ALBUTEROL SO4 0.083% IH SOL 2.5 MG/3 ML VIAL.NEB. NEB PRN (14:36)
[2021-11-05] MEDS ORDERED: PIPERACILLIN/TAZOBACTAM 3.375 GM VIAL IVPB ONE (17:08)
[2021-11-05] MEDS ORDERED: DEXTROSE 5%-WATER - 50 ML IVPB ONE (17:08)
[2021-11-05] MEDS: PIPERACILLIN/TAZOB 3.375 GM 3.375 GM in DEXTROSE 5%-WATER - 50 ML IVPB SCH (17:43)
[2021-11-05] MEDS: ALBUTEROL SO4 2.5/IPRATROPIUM 0.5 INH SOL 3 ML VIAL.NEB. NEB SCH (20:03)
[2021-11-05] MEDS: LORazepam 1 MG TABLET PO PRN (21:10)
[2021-11-05] MEDS: QUEtiapine FUMARATE 25 MG TABLET PO SCH (21:10)
[2021-11-05] MEDS ORDERED: VANCOMYCIN 500 MG in DEXTROSE 5%-WATER 100 ML IVPB SCH (23:00)
[2021-11-05] MEDS ORDERED: VANCOMYCIN 500 MG in DEXTROSE 5%-WATER - 100 ML IVPB SCH (23:00)
[2021-11-06] MEDS ORDERED: PIPERACILLIN/TAZOBACTAM 3.375 GM VIAL IVPB ONE ×2 (01:14→09:21)
[2021-11-06] MEDS ORDERED: DEXTROSE 5%-WATER - 50 ML IVPB ONE ×2 (01:14→09:21)
[2021-11-06] MEDS: methylPREDNISolone NA SUCC 40 MG/1 ML VIAL IVPUSH SCH ×3 (01:28→17:01)
[2021-11-06] MEDS: PIPERACILLIN/TAZOB 3.375 GM 3.375 GM in DEXTROSE 5%-WATER - 50 ML IVPB SCH ×3 (01:29→17:01)
[2021-11-06] MEDS: LEVOTHYROXINE NA 125 MCG TABLET (FP) PO SCH (06:04)
[2021-11-06] MEDS: ALBUTEROL SO4 2.5/IPRATROPIUM 0.5 INH SOL 3 ML VIAL.NEB. NEB SCH ×3 (07:35→20:45)
[2021-11-06 09:25] LABS: ALBUMIN 2.1 g/dl (3.4-5.0)
[2021-11-06 09:26] LABS: BLOOD UREA NITROGEN 32.7 mg/dL (7-18)
[2021-11-06 09:29] LABS: CREATININE 0.8 mg/dL (0.55-1.3)
[2021-11-06 09:30] LABS: BILIRUBIN,TOTAL 0.2 mg/dL (0.2-1); TOT PROT 6.8 g/dl (6.4-8.2)
[2021-11-06] MEDS: busPIRone HCL 10 MG TABLET (FP) PO SCH ×2 (09:54→21:14)
[2021-11-06] MEDS: NICOTINE 21 MG/24 HOURS TOPICAL PATCH TD SCH (09:54)
[2021-11-06] MEDS: FUROSEMIDE 40 MG/4 ML INJECTABLE VIAL IVPUSH SCH (09:54)
[2021-11-06] MEDS: APIXABAN 5 MG TABLET PO SCH ×2 (09:54→21:14)
[2021-11-06 12:35] LABS: URINE APPEARANCE CLEAR; URINE BILIRUBIN NEGATIVE (NEGATIVE); URINE COLOR YELLOW; URINE GLUCOSE (UA) NEGATIVE (NEGATIVE); URINE KETONE NEGATIVE (NEGATIVE); URINE LEUK ESTERASE NEGATIVE (NEGATIVE); URINE NITRITE NEGATIVE (NEGATIVE); URINE PROTEIN NEGATIVE (NEGATIVE); URINE UROBILINOGEN 0.2 mg/dL (0.2-1.0)
[2021-11-06] MEDS: AMINO ACIDS/PROTEIN HYDROLYS 30 ML LIQUID.PKT PO SCH (17:01)
[2021-11-06] MEDS: QUEtiapine FUMARATE 25 MG TABLET PO SCH (21:14)
[2021-11-07] MEDS: methylPREDNISolone NA SUCC 40 MG/1 ML VIAL IVPUSH SCH ×3 (01:08→17:17)
[2021-11-07] MEDS: PIPERACILLIN/TAZOB 3.375 GM 3.375 GM in DEXTROSE 5%-WATER - 50 ML IVPB SCH ×3 (01:08→17:17)
[2021-11-07] MEDS: LEVOTHYROXINE NA 125 MCG TABLET (FP) PO SCH (07:08)
[2021-11-07] MEDS: ALBUTEROL SO4 2.5/IPRATROPIUM 0.5 INH SOL 3 ML VIAL.NEB. NEB SCH ×3 (07:32→20:00)
[2021-11-07] MEDS: AMINO ACIDS/PROTEIN HYDROLYS 30 ML LIQUID.PKT PO SCH ×2 (09:35→17:17)
[2021-11-07] MEDS: NICOTINE 21 MG/24 HOURS TOPICAL PATCH TD SCH (09:35)
[2021-11-07] MEDS: APIXABAN 5 MG TABLET PO SCH ×2 (09:36→21:42)
[2021-11-07] MEDS: busPIRone HCL 10 MG TABLET (FP) PO SCH ×2 (09:36→21:42)
[2021-11-07] MEDS: FUROSEMIDE 40 MG/4 ML INJECTABLE VIAL IVPUSH SCH (09:36)
[2021-11-07] MEDS: LORazepam 1 MG TABLET PO PRN (21:42)
[2021-11-07] MEDS: QUEtiapine FUMARATE 25 MG TABLET PO SCH (21:48)
[2021-11-08] MEDS: PIPERACILLIN/TAZOB 3.375 GM 3.375 GM in DEXTROSE 5%-WATER - 50 ML IVPB SCH ×3 (06:36→17:33)
[2021-11-08] MEDS: methylPREDNISolone NA SUCC 40 MG/1 ML VIAL IVPUSH SCH ×2 (06:37→09:57)
[2021-11-08] MEDS: LEVOTHYROXINE NA 125 MCG TABLET (FP) PO SCH (06:38)
[2021-11-08] MEDS: ALBUTEROL SO4 2.5/IPRATROPIUM 0.5 INH SOL 3 ML VIAL.NEB. NEB SCH ×3 (08:00→19:43)
[2021-11-08 09:02] LABS: HEMOGLOBIN 10.5 GM/dL (10.7-15.3); MCH 27.8 pg (25.7-33.7); MCHC 31.7 g/dl (32.0-36.0); MEAN CELL VOLUME 87.6 fl (80-96); PLATELET COUNT 305 10^3/uL (134-434); RBC 3.77 M/mm3 (3.60-5.2); RDW 18.2 % (11.6-15.6); WHITE BLOOD COUNT 13.7 K/mm3 (4.0-10.0)
[2021-11-08] MEDS: busPIRone HCL 10 MG TABLET (FP) PO SCH ×2 (09:45→21:33)
[2021-11-08] MEDS: AMINO ACIDS/PROTEIN HYDROLYS 30 ML LIQUID.PKT PO SCH ×2 (09:46→17:33)
[2021-11-08] MEDS: FUROSEMIDE 40 MG/4 ML INJECTABLE VIAL IVPUSH SCH (09:46)
[2021-11-08] MEDS: APIXABAN 5 MG TABLET PO SCH ×2 (09:46→21:33)
[2021-11-08] MEDS: NICOTINE 21 MG/24 HOURS TOPICAL PATCH TD SCH (09:47)
[2021-11-08 09:57] LABS: CALCIUM 9.1 mg/dL (8.5-10.1)
[2021-11-08 09:58] LABS: ALBUMIN 2.3 g/dl (3.4-5.0); BLOOD UREA NITROGEN 50.6 mg/dL (7-18); MAGNESIUM 2.3 mg/dL (1.8-2.4)
[2021-11-08 09:59] LABS: TOT PROT 6.8 g/dl (6.4-8.2)
[2021-11-08 10:00] LABS: BILIRUBIN,TOTAL 0.3 mg/dL (0.2-1); CREATININE 0.8 mg/dL (0.55-1.3)
[2021-11-08] MEDS ORDERED: LORazepam 1 MG TABLET PO PRN (21:22)
[2021-11-08] MEDS: QUEtiapine FUMARATE 25 MG TABLET PO SCH (21:33)
[2021-11-08] MEDS: predniSONE 10 MG TABLET (UD) PO SCH (21:34)
[2021-11-08 23:09] VITALS: RESP 20
[2021-11-09] MEDS: PIPERACILLIN/TAZOB 3.375 GM 3.375 GM in DEXTROSE 5%-WATER - 50 ML IVPB SCH ×2 (01:28→09:52)
[2021-11-09] MEDS ORDERED: LACTOBACILLUS ACIDOPHILUS 1 TABLET PO ONE (05:52)
[2021-11-09] MEDS: LEVOTHYROXINE NA 125 MCG TABLET (FP) PO SCH (06:53)
[2021-11-09] MEDS: ALBUTEROL SO4 2.5/IPRATROPIUM 0.5 INH SOL 3 ML VIAL.NEB. NEB SCH ×2 (08:52→14:26)
[2021-11-09] MEDS: busPIRone HCL 10 MG TABLET (FP) PO SCH (09:51)
[2021-11-09] MEDS: AMINO ACIDS/PROTEIN HYDROLYS 30 ML LIQUID.PKT PO SCH (09:51)
[2021-11-09] MEDS: predniSONE 10 MG TABLET (UD) PO SCH (09:51)
[2021-11-09] MEDS: FUROSEMIDE 40 MG/4 ML INJECTABLE VIAL IVPUSH SCH (09:52)
[2021-11-09] MEDS: APIXABAN 5 MG TABLET PO SCH (09:52)
[2021-11-09] MEDS: NICOTINE 21 MG/24 HOURS TOPICAL PATCH TD SCH (09:52)
[2021-11-09 14:52] VITALS: BP 109/76; PULSE 89; TEMP 99.5
== END 2021-11-09 18:03 | disposition home or self-care (01) | DRG 193 ==
LOC: JER 18:27 → JERBED 22:17 → J7W 11-05 12:14
PROVIDERS: ADMIT Internal Medicine; ATTEND Family Medicine
DX: J18.9 Pneumonia, unspecified organism (principal); E43 Unspecified severe protein-calorie malnutrition; J44.1 Chronic obstructive pulmonary disease with (acute) exacerbation; C79.31 Secondary malignant neoplasm of brain; C78.00 Secondary malignant neoplasm of unspecified lung; Z68.1 Body mass index [BMI] 19.9 or less, adult; R64 Cachexia; E03.9 Hypothyroidism, unspecified; D64.9 Anemia, unspecified; E11.9 Type 2 diabetes mellitus without complications; Z85.3 Personal history of malignant neoplasm of breast; R62.7 Adult failure to thrive; F17.210 Nicotine dependence, cigarettes, uncomplicated; E78.5 Hyperlipidemia, unspecified; I10 Essential (primary) hypertension; F41.9 Anxiety disorder, unspecified; E87.5 Hyperkalemia; D72.829 Elevated white blood cell count, unspecified
CPT/HCPCS: 36415; 71046-TC-FY; 71250-TC; 80053; 81003; 82803; 83735; 83880; 84484; 85025; 85027; 87040; 87899; 93005; 93010; 93306-TC; 94640; 97116-GP; 97162-GP; 99285-25; C9803-CS; U0003; U0005

== ENCOUNTER 2021-11-18 02:54 | Inpatient (IN) | payer OTHER, BC ==
[2021-11-18] MEDS ORDERED: methylPREDNISolone NA SUCC 125 MG/2 ML VIAL IVPUSH ONE (03:11)
[2021-11-18] MEDS ORDERED: methylPREDNISolone NA SUCC 125 MG/2 ML VIAL ONE (03:50)
[2021-11-18] MEDS: ALBUTEROL SO4 0.083% IH SOL 2.5 MG/3 ML VIAL.NEB. NEB SCH ×4 (04:03→04:35)
[2021-11-18 04:36] LABS: BASO % 0.6 % (0-2.0); EOS % 0.3 % (0-4.5); HEMATOCRIT 32.5 % (32.4-45.2); HEMOGLOBIN 10.9 GM/dL (10.7-15.3); LYMPH % 11.8 % (8-40); MCH 29.4 pg (25.7-33.7); MCHC 33.4 g/dl (32.0-36.0); MEAN CELL VOLUME 88.1 fl (80-96); MONO % 4.7 % (3.8-10.2); NEUT % 82.6 % (42.8-82.8); PLATELET COUNT 261 10^3/uL (134-434); RBC 3.69 M/mm3 (3.60-5.2); RDW 18.2 % (11.6-15.6)
[2021-11-18 04:38] LABS: VENOUS BASE EXCESS 6.6 mmol/L (-2-2); VENOUS O2 SATURATION 61.6 % (70-80); VENOUS PCO2 63.1 mmHg (38-52); VENOUS PH 7.35 (7.310-7.410)
[2021-11-18 04:56] LABS: ALBUMIN 2.2 g/dl (3.4-5.0); BLOOD UREA NITROGEN 25.7 mg/dL (7-18); CALCIUM 8.4 mg/dL (8.5-10.1); MAGNESIUM 2.1 mg/dL (1.8-2.4)
[2021-11-18] MEDS ORDERED: VANCOMYCIN 1 GM in D5W (PRE-DOCKED) 1,000 MG/250 ML IVPB ONE (04:57)
[2021-11-18] MEDS ORDERED: PIPERACILLIN/TAZOB 4.5 GM 4.5 GM in DEXTROSE 5%-WATER 100 ML IVPB ONE (04:57)
[2021-11-18 05:00] LABS: CREATININE 0.6 mg/dL (0.55-1.3)
[2021-11-18 05:01] LABS: BILIRUBIN,TOTAL 0.9 mg/dL (0.2-1); TOT PROT 6.9 g/dl (6.4-8.2)
[2021-11-18] MEDS ORDERED: PIPERACILLIN/TAZOB 4.5 GM 4.5 GM/100 ML BAG IVPB ONE (05:06)
[2021-11-18] MEDS ORDERED: VANCOMYCIN/WATER FOR INJ (PEG) 1,000 MG/200 ML BAG IVPB ONE (05:34)
[2021-11-18] MEDS ORDERED: ALBUTEROL SO4 2.5/IPRATROPIUM 0.5 INH SOL 3 ML VIAL.NEB. NEB PRN (05:55)
[2021-11-18] MEDS: ALBUTEROL SO4 2.5/IPRATROPIUM 0.5 INH SOL 3 ML VIAL.NEB. NEB SCH ×3 (08:05→20:09)
[2021-11-18] MEDS: methylPREDNISolone NA SUCC 40 MG/1 ML VIAL IVPUSH SCH ×2 (12:37→18:13)
[2021-11-18 16:07] VITALS: BMI 16.8
[2021-11-18] MEDS ORDERED: ALBUTEROL SO4 HFA INHALER IH PRN (20:22)
[2021-11-18] MEDS: APIXABAN 5 MG TABLET PO SCH (21:23)
[2021-11-18] MEDS: ALPRAZolam 0.25 MG TABLET PO PRN (21:23)
[2021-11-18] MEDS: MELATONIN 5 MG TABLETS PO PRN (21:23)
[2021-11-18] MEDS: busPIRone HCL 10 MG TABLET (FP) PO SCH (21:24)
[2021-11-19] MEDS: methylPREDNISolone NA SUCC 40 MG/1 ML VIAL IVPUSH SCH ×2 (01:38→11:10)
[2021-11-19] MEDS: LEVOTHYROXINE NA 25 MCG TABLET (FP) PO SCH (06:39)
[2021-11-19] MEDS: APIXABAN 5 MG TABLET PO SCH ×2 (11:10→21:43)
[2021-11-19] MEDS: amLODIPine BESYLATE 5 MG TABLET (FP) PO SCH (11:10)
[2021-11-19] MEDS: busPIRone HCL 10 MG TABLET (FP) PO SCH ×2 (11:11→22:14)
[2021-11-19] MEDS: predniSONE 20 MG TABLET (UD) PO SCH (16:04)
[2021-11-19] MEDS: AMINO ACIDS/PROTEIN HYDROLYS 30 ML LIQUID.PKT PO SCH (18:52)
[2021-11-19] MEDS: MELATONIN 5 MG TABLETS PO PRN (21:49)
[2021-11-19] MEDS: ZOLPIDEM TARTRATE 5 MG TABLET PO PRN (21:50)
[2021-11-20] MEDS: ALPRAZolam 0.25 MG TABLET PO PRN ×2 (04:07→13:37)
[2021-11-20] MEDS: ALBUTEROL SO4 2.5/IPRATROPIUM 0.5 INH SOL 3 ML VIAL.NEB. NEB PRN ×4 (04:30→21:00)
[2021-11-20] MEDS: LEVOTHYROXINE NA 25 MCG TABLET (FP) PO SCH (06:30)
[2021-11-20] MEDS: AMINO ACIDS/PROTEIN HYDROLYS 30 ML LIQUID.PKT PO SCH ×2 (08:27→17:29)
[2021-11-20] MEDS: ASCORBIC ACID 500 MG TABLET (FP) GT SCH (09:24)
[2021-11-20] MEDS: amLODIPine BESYLATE 5 MG TABLET (FP) PO SCH (09:24)
[2021-11-20] MEDS: predniSONE 20 MG TABLET (UD) PO SCH (09:24)
[2021-11-20] MEDS: MULTIVITAMINS (DAILY MVI) TABLET (FP) PO SCH (09:24)
[2021-11-20] MEDS: APIXABAN 5 MG TABLET PO SCH ×2 (09:24→21:39)
[2021-11-20] MEDS: COLLAGENASE CLOSTRIDIUM HIST. 30 GRAMS TUBE TP SCH (09:53)
[2021-11-20] MEDS: busPIRone HCL 10 MG TABLET (FP) PO SCH ×2 (09:53→21:39)
[2021-11-20] MEDS: MELATONIN 5 MG TABLETS PO PRN (21:39)
[2021-11-20] MEDS: ZOLPIDEM TARTRATE 5 MG TABLET PO PRN (21:39)
[2021-11-21] MEDS: ALPRAZolam 0.25 MG TABLET PO PRN ×2 (01:09→09:58)
[2021-11-21] MEDS: LEVOTHYROXINE NA 25 MCG TABLET (FP) PO SCH (06:37)
[2021-11-21] MEDS: MULTIVITAMINS (DAILY MVI) TABLET (FP) PO SCH (09:57)
[2021-11-21] MEDS: predniSONE 20 MG TABLET (UD) PO SCH (09:57)
[2021-11-21] MEDS: APIXABAN 5 MG TABLET PO SCH (09:57)
[2021-11-21] MEDS: amLODIPine BESYLATE 5 MG TABLET (FP) PO SCH (09:57)
[2021-11-21] MEDS: ASCORBIC ACID 500 MG TABLET (FP) GT SCH (09:57)
[2021-11-21] MEDS: AMINO ACIDS/PROTEIN HYDROLYS 30 ML LIQUID.PKT PO SCH (09:58)
[2021-11-21] MEDS: COLLAGENASE CLOSTRIDIUM HIST. 30 GRAMS TUBE TP SCH (09:58)
[2021-11-21] MEDS: busPIRone HCL 10 MG TABLET (FP) PO SCH (09:58)
[2021-11-21 15:43] VITALS: BP 155/77; PULSE 99; RESP 20; TEMP 99.1
== END 2021-11-21 18:10 | disposition home health service (06) | DRG 190 ==
LOC: JER 02:54 → JERBED 04:58 → J8W 09:07
PROVIDERS: ADMIT Family Medicine; ATTEND Family Medicine
DX: J44.1 Chronic obstructive pulmonary disease with (acute) exacerbation (principal); E43 Unspecified severe protein-calorie malnutrition; L89.153 Pressure ulcer of sacral region, stage 3; Z68.1 Body mass index [BMI] 19.9 or less, adult; C78.00 Secondary malignant neoplasm of unspecified lung; C79.31 Secondary malignant neoplasm of brain; I48.91 Unspecified atrial fibrillation; E03.9 Hypothyroidism, unspecified; E11.9 Type 2 diabetes mellitus without complications; I10 Essential (primary) hypertension; F17.200 Nicotine dependence, unspecified, uncomplicated; F41.8 Other specified anxiety disorders; R62.7 Adult failure to thrive; C50.919 Malignant neoplasm of unspecified site of unspecified female breast
CPT/HCPCS: 0241U-QW; 36415; 71045-TC-FY; 80053; 82803; 83605; 83735; 84484; 85025; 87040; 93005; 93010; 94640; 97116-GP; 97161-GP; 99285-25; C9803-CS; U0003; U0005

== ENCOUNTER 2021-11-23 17:04 | Inpatient (IN) | payer OTHER, BC ==
[2021-11-23] MEDS ORDERED: DIPHTH,PERTUSS(ACELL),TET 0.5 ML DISP.SYRIN IM ONE ×2 (17:11→17:15)
[2021-11-23] MEDS: ALBUTEROL SO4 2.5/IPRATROPIUM 0.5 INH SOL 3 ML VIAL.NEB. NEB SCH ×4 (17:15→18:14)
[2021-11-23] MEDS ORDERED: ALBUTEROL SO4 2.5/IPRATROPIUM 0.5 INH SOL 3 ML VIAL.NEB. NEB ONE ×2 (17:15→18:23)
[2021-11-23] MEDS ORDERED: SODIUM CHLORIDE 0.9% 500 ML INFUS.BAG IV ONE (17:18)
[2021-11-23] MEDS ORDERED: ACETAMINOPHEN 1000 MG/100 ML BAG IVPB ONE (17:18)
[2021-11-23] MEDS ORDERED: VANCOMYCIN 1 GM in D5W (PRE-DOCKED) 1,000 MG/250 ML IVPB ONE (17:20)
[2021-11-23] MEDS ORDERED: CEFEPIME HCL/D5W 1 GM/50 ML BAG IVPB ONE (17:21)
[2021-11-23] MEDS ORDERED: CEFEPIME 1 GM/100 ML BAG IVPB ONE (17:26)
[2021-11-23] MEDS ORDERED: VANCOMYCIN/WATER FOR INJ (PEG) 1,000 MG/200 ML BAG IVPB ONE (17:26)
[2021-11-23] MEDS ORDERED: ACETAMINOPHEN INJECTION 100 ML IVPB ONE (17:26)
[2021-11-23] MEDS ORDERED: methylPREDNISolone NA SUCC 125 MG/2 ML VIAL IVPUSH ONE (17:34)
[2021-11-23] MEDS ORDERED: methylPREDNISolone NA SUCC 125 MG/2 ML VIAL ONE (17:37)
[2021-11-23 17:41] VITALS: BMI 16.8
[2021-11-23 18:07] LABS: VENOUS O2 SATURATION 97.5 % (70-80); VENOUS PCO2 45.8 mmHg (38-52); VENOUS PH 7.46 (7.310-7.410)
[2021-11-23 18:10] LABS: HEMATOCRIT 39.3 % (32.4-45.2); HEMOGLOBIN 12.4 GM/dL (10.7-15.3); MCH 28.4 pg (25.7-33.7); MCHC 31.6 g/dl (32.0-36.0); MEAN CELL VOLUME 89.8 fl (80-96); MEAN PLT VOLUME 8.1 fl (7.5-11.1); PLATELET COUNT 262 10^3/uL (134-434); RBC 4.38 M/mm3 (3.60-5.2); RDW 18.1 % (11.6-15.6); WHITE BLOOD COUNT 20.5 K/mm3 (4.0-10.0)
[2021-11-23 18:17] LABS: INR 1.15 (0.83-1.09); PROTHROMBIN TIME (PATIENT) 13.2 SEC (9.7-13.0)
[2021-11-23 18:20] LABS: ACTIVATED PTT 34.9 SECONDS (25.2-36.5)
[2021-11-23 18:34] LABS: CHLORIDE 95 mmol/L (98-107); SODIUM 138 mmol/L (136-145)
[2021-11-23 18:36] LABS: ALBUMIN 2.3 g/dl (3.4-5.0); ANION GAP 8 MMOL/L (8-16); BLOOD UREA NITROGEN 14.2 mg/dL (7-18); CO2 34 mmol/L (21-32); GLUCOSE,RANDOM 161 mg/dL (74-106); MAGNESIUM 2.2 mg/dL (1.8-2.4)
[2021-11-23 18:39] LABS: CREATININE 0.5 mg/dL (0.55-1.3); SGOT/AST 19 U/L (15-37)
[2021-11-23 18:40] LABS: PHOSPHOROUS 3.5 mg/dL (2.5-4.9); SGPT/ALT 33 U/L (13-61)
[2021-11-23 18:41] LABS: BILIRUBIN,TOTAL 0.6 mg/dL (0.2-1); TOT PROT 7.1 g/dl (6.4-8.2)
[2021-11-23 18:42] LABS: ALK PHOS 91 U/L (45-117)
[2021-11-23 18:45] LABS: LACTIC ACID 2.1 mmol/L (0.4-2.0)
[2021-11-23 20:39] LABS: ANISOCYTOSIS 1+; MACROCYTOSIS 0; PLATELET ESTIMATE NORMAL
[2021-11-23] MEDS ORDERED: ACETAMINOPHEN 500 MG TABLET (FP) PO ONE (21:01)
[2021-11-23 21:36] LABS: PH,URINE 6.5 (5.0-8.0); URINE APPEARANCE CLEAR; URINE BILIRUBIN NEGATIVE (NEGATIVE); URINE COLOR YELLOW; URINE GLUCOSE (UA) NEGATIVE (NEGATIVE); URINE KETONE NEGATIVE (NEGATIVE); URINE LEUK ESTERASE NEGATIVE (NEGATIVE); URINE NITRITE NEGATIVE (NEGATIVE); URINE PROTEIN NEGATIVE (NEGATIVE); URINE UROBILINOGEN 0.2 mg/dL (0.2-1.0)
[2021-11-24] MEDS ORDERED: VANCOMYCIN 750 MG in DEXTROSE 5%-WATER - 150 ML IVPB SCH (04:00)
[2021-11-24] MEDS ORDERED: ALBUTEROL SO4 2.5/IPRATROPIUM 0.5 INH SOL 3 ML VIAL.NEB. NEB PRN (04:06)
[2021-11-24] MEDS ORDERED: ACETAMINOPHEN 1000 MG/100 ML BAG IVPB PRN (04:16)
[2021-11-24] MEDS: methylPREDNISolone NA SUCC 40 MG/1 ML VIAL IVPUSH SCH ×3 (05:10→18:14)
[2021-11-24] MEDS: CEFEPIME 1 GM in DEXTROSE 5%-WATER 100 ML IVPB SCH ×3 (05:11→18:04)
[2021-11-24] MEDS ORDERED: LEVOTHYROXINE NA 25 MCG TABLET (FP) PO SCH (07:00)
[2021-11-24] MEDS: VANCOMYCIN/WATER FOR INJ (PEG) 750 MG/150 ML BAG IVPB SCH ×2 (07:09→19:07)
[2021-11-24 07:13] LABS: HEMATOCRIT 30.7 % (32.4-45.2); HEMOGLOBIN 10.3 GM/dL (10.7-15.3); MCH 29.8 pg (25.7-33.7); MCHC 33.4 g/dl (32.0-36.0); MEAN CELL VOLUME 89.1 fl (80-96); MEAN PLT VOLUME 7.1 fl (7.5-11.1); PLATELET COUNT 212 10^3/uL (134-434); RBC 3.45 M/mm3 (3.60-5.2); RDW 17.7 % (11.6-15.6)
[2021-11-24 07:35] LABS: CALCIUM 8.3 mg/dL (8.5-10.1)
[2021-11-24 07:39] LABS: CREATININE 0.5 mg/dL (0.55-1.3)
[2021-11-24] MEDS: AMINO ACIDS/PROTEIN HYDROLYS 30 ML LIQUID.PKT PO SCH ×2 (09:53→18:07)
[2021-11-24] MEDS: ASCORBIC ACID 500 MG TABLET (FP) PO SCH (09:53)
[2021-11-24] MEDS: busPIRone HCL 10 MG TABLET (FP) PO SCH ×2 (09:53→21:09)
[2021-11-24] MEDS: APIXABAN 5 MG TABLET PO SCH ×2 (09:53→21:08)
[2021-11-24] MEDS ORDERED: busPIRone HCL 10 MG TABLET (FP) PO SCH (10:00)
[2021-11-24 10:31] LABS: ANISOCYTOSIS 0; HELMET CELLS 0; HOWELL-JOLLY BODIES 0; MACROCYTOSIS 0; OVALOCYTE 0; ROULEAU 0; SICKELED CELLS 0; TARGET CELLS 0; TEAR DROP CELLS 0; TOXIC GRANULATION 0
[2021-11-24] MEDS: ALBUTEROL SO4 2.5/IPRATROPIUM 0.5 INH SOL 3 ML VIAL.NEB. NEB SCH (20:27)
[2021-11-24] MEDS: MELATONIN 5 MG TABLETS PO PRN (21:08)
[2021-11-25] MEDS: methylPREDNISolone NA SUCC 40 MG/1 ML VIAL IVPUSH SCH ×3 (01:14→18:50)
[2021-11-25] MEDS: LEVOTHYROXINE NA 25 MCG TABLET (FP) PO SCH (06:09)
[2021-11-25] MEDS: ALBUTEROL SO4 2.5/IPRATROPIUM 0.5 INH SOL 3 ML VIAL.NEB. NEB SCH ×4 (08:04→20:40)
[2021-11-25] MEDS: busPIRone HCL 10 MG TABLET (FP) PO SCH ×2 (09:39→21:56)
[2021-11-25] MEDS: AMINO ACIDS/PROTEIN HYDROLYS 30 ML LIQUID.PKT PO SCH ×2 (09:40→18:50)
[2021-11-25] MEDS: ASCORBIC ACID 500 MG TABLET (FP) PO SCH (09:40)
[2021-11-25] MEDS: APIXABAN 5 MG TABLET PO SCH ×2 (09:40→21:57)
[2021-11-26] MEDS: MELATONIN 5 MG TABLETS PO PRN (01:51)
[2021-11-26] MEDS: methylPREDNISolone NA SUCC 40 MG/1 ML VIAL IVPUSH SCH ×2 (01:51→09:30)
[2021-11-26] MEDS: LEVOTHYROXINE NA 25 MCG TABLET (FP) PO SCH (06:29)
[2021-11-26] MEDS: ALBUTEROL SO4 2.5/IPRATROPIUM 0.5 INH SOL 3 ML VIAL.NEB. NEB SCH ×3 (08:17→16:59)
[2021-11-26 08:35] LABS: HEMATOCRIT 33.7 % (32.4-45.2); HEMOGLOBIN 10.6 GM/dL (10.7-15.3); MCH 28.5 pg (25.7-33.7); MCHC 31.4 g/dl (32.0-36.0); MEAN CELL VOLUME 90.8 fl (80-96); MEAN PLT VOLUME 7.3 fl (7.5-11.1); PLATELET COUNT 232 10^3/uL (134-434); RBC 3.72 M/mm3 (3.60-5.2); RDW 17.6 % (11.6-15.6); WHITE BLOOD COUNT 10.3 K/mm3 (4.0-10.0)
[2021-11-26 08:56] LABS: CALCIUM 9.2 mg/dL (8.5-10.1)
[2021-11-26 08:57] LABS: ALBUMIN 2.2 g/dl (3.4-5.0); BLOOD UREA NITROGEN 34.3 mg/dL (7-18)
[2021-11-26 09:00] LABS: CREATININE 0.6 mg/dL (0.55-1.3)
[2021-11-26 09:01] LABS: BILIRUBIN,TOTAL 0.4 mg/dL (0.2-1); TOT PROT 6.7 g/dl (6.4-8.2)
[2021-11-26 09:31] LABS: ANISOCYTOSIS 0; MACROCYTOSIS 1+; OVALOCYTE 1+
[2021-11-26] MEDS: APIXABAN 5 MG TABLET PO SCH ×2 (09:31→22:48)
[2021-11-26] MEDS: busPIRone HCL 10 MG TABLET (FP) PO SCH (09:31)
[2021-11-26] MEDS: ASCORBIC ACID 500 MG TABLET (FP) PO SCH (09:31)
[2021-11-26] MEDS: AMINO ACIDS/PROTEIN HYDROLYS 30 ML LIQUID.PKT PO SCH ×2 (09:31→17:17)
[2021-11-26] MEDS ORDERED: predniSONE 20 MG TABLET (UD) PO SCH (10:00)
[2021-11-26] MEDS ORDERED: SODIUM ZIRCONIUM CYCLOSILICATE (LOKELMA) 5 GM PACKET PO SCH (11:30)
[2021-11-26] MEDS: ALPRAZolam 0.25 MG TABLET PO PRN ×3 (12:59→23:59)
[2021-11-26] MEDS ORDERED: ALPRAZolam 0.25 MG TABLET PO PRN (14:00)
[2021-11-26] MEDS: busPIRone HCL 5 MG TABLET PO SCH (22:47)
[2021-11-26] MEDS: predniSONE 20 MG TABLET (UD) PO SCH (22:48)
[2021-11-27] MEDS ORDERED: CEFEPIME 1 GM in DEXTROSE 5%-WATER 100 ML IVPB SCH (02:00)
[2021-11-27] MEDS: MELATONIN 5 MG TABLETS PO PRN ×2 (02:24→22:10)
[2021-11-27] MEDS: ALBUTEROL SO4 2.5/IPRATROPIUM 0.5 INH SOL 3 ML VIAL.NEB. NEB PRN (05:25)
[2021-11-27] MEDS ORDERED: VANCOMYCIN/WATER FOR INJ (PEG) 750 MG/150 ML BAG IVPB SCH (06:00)
[2021-11-27] MEDS: LEVOTHYROXINE NA 125 MCG TABLET (FP) PO SCH (07:03)
[2021-11-27] MEDS: ALBUTEROL SO4 2.5/IPRATROPIUM 0.5 INH SOL 3 ML VIAL.NEB. NEB SCH ×4 (07:35→20:26)
[2021-11-27] MEDS: ALPRAZolam 0.25 MG TABLET PO PRN ×2 (08:02→16:39)
[2021-11-27] MEDS: AMINO ACIDS/PROTEIN HYDROLYS 30 ML LIQUID.PKT PO SCH ×2 (08:06→16:40)
[2021-11-27 09:44] LABS: CALCIUM 8.8 mg/dL (8.5-10.1)
[2021-11-27 09:45] LABS: ALBUMIN 2.2 g/dl (3.4-5.0); BLOOD UREA NITROGEN 32.9 mg/dL (7-18)
[2021-11-27 09:48] LABS: CREATININE 0.7 mg/dL (0.55-1.3)
[2021-11-27 09:50] LABS: BILIRUBIN,TOTAL 0.3 mg/dL (0.2-1); TOT PROT 6.4 g/dl (6.4-8.2)
[2021-11-27] MEDS: busPIRone HCL 5 MG TABLET PO SCH ×2 (09:58→22:03)
[2021-11-27] MEDS: predniSONE 20 MG TABLET (UD) PO SCH ×2 (09:59→22:03)
[2021-11-27] MEDS: ASCORBIC ACID 500 MG TABLET (FP) PO SCH (09:59)
[2021-11-27] MEDS: APIXABAN 5 MG TABLET PO SCH ×2 (09:59→22:03)
[2021-11-27] MEDS ORDERED: SODIUM ZIRCONIUM CYCLOSILICATE (LOKELMA) 5 GM PACKET PO SCH (10:00)
[2021-11-27] MEDS: CEFEPIME 1 GM in DEXTROSE 5%-WATER 100 ML IVPB SCH ×2 (10:32→10:33)
[2021-11-27] MEDS: VANCOMYCIN/WATER FOR INJ (PEG) 750 MG/150 ML BAG IVPB SCH ×2 (10:33→10:34)
[2021-11-28] MEDS: ALPRAZolam 0.25 MG TABLET PO PRN ×3 (00:31→18:45)
[2021-11-28] MEDS: ALBUTEROL SO4 2.5/IPRATROPIUM 0.5 INH SOL 3 ML VIAL.NEB. NEB PRN (02:00)
[2021-11-28] MEDS: INSULIN (LEVEMIR) 100 UNITS/ML UNITS SQ SCH (06:04)
[2021-11-28] MEDS: INSULIN (NOVOLOG) ASPART 100 UNITS/ML 10ML VIAL SQ SCH ×7 (06:04→22:09)
[2021-11-28] MEDS: LEVOTHYROXINE NA 125 MCG TABLET (FP) PO SCH (06:08)
[2021-11-28] MEDS ORDERED: INSULIN (NOVOLOG) ASPART 100 UNITS/ML 10ML VIAL SQ SCH ×2 (07:00)
[2021-11-28] MEDS ORDERED: INSULIN (LEVEMIR) 100 UNITS/ML UNITS SQ SCH (07:00)
[2021-11-28] MEDS: ALBUTEROL SO4 2.5/IPRATROPIUM 0.5 INH SOL 3 ML VIAL.NEB. NEB SCH ×4 (07:40→20:31)
[2021-11-28] MEDS: AMINO ACIDS/PROTEIN HYDROLYS 30 ML LIQUID.PKT PO SCH ×2 (08:19→17:31)
[2021-11-28] MEDS: APIXABAN 5 MG TABLET PO SCH ×2 (09:01→21:50)
[2021-11-28] MEDS: busPIRone HCL 5 MG TABLET PO SCH ×2 (09:01→21:50)
[2021-11-28] MEDS: ASCORBIC ACID 500 MG TABLET (FP) PO SCH (09:01)
[2021-11-28] MEDS: predniSONE 20 MG TABLET (UD) PO SCH ×2 (09:02→21:50)
[2021-11-28] MEDS ORDERED: ACETAMINOPHEN 325 MG TABLET (FP) PO PRN (11:09)
[2021-11-28] MEDS: MULTIVITAMINS (DAILY MVI) TABLET (FP) PO SCH (11:52)
[2021-11-28] MEDS: traMADol HCL 50 MG TABLET PO PRN (11:52)
[2021-11-28] MEDS: COLLAGENASE CLOSTRIDIUM HIST. 30 GRAMS TUBE TP SCH (13:59)
[2021-11-28] MEDS: SODIUM CHLORIDE 1,000 ML IV SCH (15:06)
[2021-11-28] MEDS: MELATONIN 5 MG TABLETS PO PRN (21:50)
[2021-11-29] MEDS: traMADol HCL 50 MG TABLET PO PRN (01:03)
[2021-11-29] MEDS: ALPRAZolam 0.25 MG TABLET PO PRN (02:09)
[2021-11-29] MEDS: LEVOTHYROXINE NA 125 MCG TABLET (FP) PO SCH (06:37)
[2021-11-29] MEDS: INSULIN (NOVOLOG) ASPART 100 UNITS/ML 10ML VIAL SQ SCH ×6 (06:45→16:45)
[2021-11-29] MEDS: INSULIN (LEVEMIR) 100 UNITS/ML UNITS SQ SCH (06:50)
[2021-11-29] MEDS: ALBUTEROL SO4 2.5/IPRATROPIUM 0.5 INH SOL 3 ML VIAL.NEB. NEB SCH ×3 (07:50→15:35)
[2021-11-29] MEDS: AMINO ACIDS/PROTEIN HYDROLYS 30 ML LIQUID.PKT PO SCH (08:12)
[2021-11-29] MEDS: APIXABAN 5 MG TABLET PO SCH (09:47)
[2021-11-29] MEDS: busPIRone HCL 5 MG TABLET PO SCH (09:47)
[2021-11-29] MEDS: predniSONE 20 MG TABLET (UD) PO SCH (09:47)
[2021-11-29] MEDS: ASCORBIC ACID 500 MG TABLET (FP) PO SCH (09:47)
[2021-11-29] MEDS: COLLAGENASE CLOSTRIDIUM HIST. 30 GRAMS TUBE TP SCH (09:47)
[2021-11-29] MEDS: MULTIVITAMINS (DAILY MVI) TABLET (FP) PO SCH (10:07)
[2021-11-29] MEDS ORDERED: busPIRone HCL 5 MG TABLET PO SCH (10:43)
[2021-11-29] MEDS ORDERED: ESCITALOPRAM OXALATE 10 MG TABLET PO SCH (10:45)
[2021-11-29 12:15] LABS: HEMATOCRIT 32.6 % (32.4-45.2); HEMOGLOBIN 10.6 GM/dL (10.7-15.3); MCHC 32.4 g/dl (32.0-36.0); MEAN CELL VOLUME 89.7 fl (80-96); MEAN PLT VOLUME 7.3 fl (7.5-11.1); PLATELET COUNT 265 10^3/uL (134-434); RBC 3.64 M/mm3 (3.60-5.2); RDW 17.4 % (11.6-15.6); WHITE BLOOD COUNT 16.6 K/mm3 (4.0-10.0)
[2021-11-29 12:43] LABS: CHLORIDE 98 mmol/L (98-107); SODIUM 140 mmol/L (136-145)
[2021-11-29 12:45] LABS: CALCIUM 9.3 mg/dL (8.5-10.1)
[2021-11-29 12:46] LABS: ANION GAP 3 MMOL/L (8-16); BLOOD UREA NITROGEN 20.5 mg/dL (7-18); CO2 40 mmol/L (21-32)
[2021-11-29 12:49] LABS: CREATININE 0.4 mg/dL (0.55-1.3); SGOT/AST 17 U/L (15-37); SGPT/ALT 34 U/L (13-61)
[2021-11-29 12:50] LABS: BILIRUBIN,TOTAL 0.7 mg/dL (0.2-1)
[2021-11-29 12:52] LABS: GLUCOSE,RANDOM 49 mg/dL (74-106)
[2021-11-29 13:07] LABS: ALK PHOS 91 U/L (45-117)
[2021-11-29 14:13] VITALS: RESP 20
[2021-11-29 14:45] VITALS: BP 125/70; PULSE 114; TEMP 99.3
[2021-11-29] MEDS: SODIUM CHLORIDE 1,000 ML IV SCH (16:43)
[2021-11-30] MEDS ORDERED: INSULIN (LEVEMIR) 100 UNITS/ML UNITS SQ SCH (07:00)
== END 2021-11-29 17:42 | DRG 190 ==
LOC: JER 17:04 → JERBED 19:14 → J4W 11-24 04:33 → J6S 11-26 20:43
PROVIDERS: ADMIT Hospitalist; ATTEND Family Medicine
DX: J44.1 Chronic obstructive pulmonary disease with (acute) exacerbation (principal); E43 Unspecified severe protein-calorie malnutrition; J96.21 Acute and chronic respiratory failure with hypoxia; C78.00 Secondary malignant neoplasm of unspecified lung; C79.31 Secondary malignant neoplasm of brain; R64 Cachexia; Z68.1 Body mass index [BMI] 19.9 or less, adult; R41.82 Altered mental status, unspecified; I48.91 Unspecified atrial fibrillation; E03.9 Hypothyroidism, unspecified; E78.5 Hyperlipidemia, unspecified; E11.9 Type 2 diabetes mellitus without complications; F41.8 Other specified anxiety disorders; D72.829 Elevated white blood cell count, unspecified; C50.919 Malignant neoplasm of unspecified site of unspecified female breast; E87.5 Hyperkalemia; R29.6 Repeated falls; R87 Abnormal findings in specimens from female genital organs; R62.7 Adult failure to thrive; L89.322 Pressure ulcer of left buttock, stage 2; L89.151 Pressure ulcer of sacral region, stage 1; Z99.81 Dependence on supplemental oxygen; W18.39XA Other fall on same level, initial encounter; Y92.092 Bedroom in other non-institutional residence as the place of occurrence of the external cause
CPT/HCPCS: 36415; 70450-TC; 71045-TC-FY; 72125-TC; 72170-TC-FY; 72192-TC; 80048; 80053; 81003; 82550; 82553; 82803; 82962; 83036; 83605; 83735; 84100; 84443; 84484; 85025; 85027; 85610; 85730; 87040; 87086; 90715; 93005; 93010; 94640; 97116-GP; 97162-GP; 99285-25; C9803-CS; U0003; U0005